=== PATIENT | male | born 1935 | race Caucasian/White ===

== ENCOUNTER → 2020-01-15 14:07 | Outpatient (BNVA) | payer MEDICARE, BC, SELFPAY | PROVIDERS: Family Provider Family Medicine; Visit Provider Podiatrist Foot & Ankle Surgery | DX: M21.41 Flat foot [pes planus] (acquired), right foot (principal) | CPT/HCPCS: 73630 ==

== ENCOUNTER 2020-02-23 13:49 | Outpatient (CLI) | payer MEDICARE, BC, SELFPAY | END 2020-02-23 13:50 | disposition home or self-care (01) | LOC: SPT 13:50 | PROVIDERS: Family Provider Family Medicine; Visit Provider Podiatrist Foot & Ankle Surgery | DX: M21.41 Flat foot [pes planus] (acquired), right foot (principal); M21.42 Flat foot [pes planus] (acquired), left foot; M21.611 Bunion of right foot; M21.612 Bunion of left foot; M20.41 Other hammer toe(s) (acquired), right foot; M20.42 Other hammer toe(s) (acquired), left foot | CPT/HCPCS: 97760; L3030 ==

== ENCOUNTER → 2021-02-07 13:08 | Outpatient (BNVA) | payer MEDICARE, BC, SELFPAY | PROVIDERS: Family Provider Family Medicine; Referring Provider Family Medicine; Visit Provider Specialist | DX: G56.00 Carpal tunnel syndrome, unspecified upper limb (principal) | CPT/HCPCS: 73110 ==

== ENCOUNTER 2021-02-10 12:36 | Outpatient (CLI) | payer MEDICARE, BC, SELFPAY ==
--- NOTE | 2021-02-10 12:46 | US_ITS ---
WS: [id number] ULTRASOUND THYROID TECHNIQUE: Ultrasound of the thyroid. CLINICAL INFORMATION: THYROID NODULE COMPARISON: None. FINDINGS: Thyroid: Right and left thyroid lobes are normal in size and echotexture. Complex cystic and solid left thyroid nodule measuring 4.2 x 3.6 cm. Recommend further evaluation wit h FNA. Small cystic right thyroid lesion measuring 5.2 x 5.8 x 7.5 mm. No other visualized nodules. Right thyroid lobe: 1.9 x 1.9 x 6.0 cm Left thyroid lobe: 7.1 cm x 3.2 cm x 3.1 cm. Isthmus: 4.6 mm. Cervical lymphadenopathy: None. US/US thyroid [id number] IMPRESSION: 1. Complex cystic and solid LEFT thyroid nodule measuring 4.2 x 3.6 cm. Recomm end further evaluation with ultrasound-guided FNA. 2. Small cystic RIGHT mid thyroid lesion measuring 5.2 x 5.8 x 7.5mm likely be nign colloid cyst
--- NOTE | 2021-02-10 12:46 | USCV_ITS ---
Ruben Huff Age: 85 Gender: M : 1935 Exam Date: 02/10/2021 13:42 Ordering Phys: Autumn Maza MD Technologist: Trupti Duenas Exam Location: [facility] Indication: DYSPNEA BP: 140 / 77 HR: 74 Rhythm: Sinus Technical Quality: Adequate MEASUREMENTS (Male / Female) Normal Values 2D ECHO LV Diastolic Diameter PLAX 4.6 cm 4.2 - 5.9 / 3.9 - 5.3 cm LV Systolic Diameter PLAX 3.9 cm IVS Diastolic Thickness 1.8 cm 0.6 - 1.0 / 0.6 - 0.9 cm IVS Systolic Thickness 2.3 cm LVPW Diastolic Thickness 1.6 cm 0.6 - 1.0 / 0.6 - 0.9 cm LVPW Systolic Thickness 2.0 cm RV Chamber Size 4.6 cm LVOT Diameter 2.0 cm LV Ejection Fraction 2D Teich 30.9 % LV Ejection Fraction MOD 2C 27.0 % LV Ejection Fraction 2C AL 28.6 % LA Diameter 4.5 cm LA Width 4.8 cm LA Height 6.3 cm RA Width 5.0 cm RA Height 6.4 cm Aorta at Sinotubular Diameter 2.9 cm M-MODE Aortic Annulus Diameter 2.9 cm LA Ao Ratio MM 1.5 MV E Point Septal Separation 1.3 cm DOPPLER AV Peak Velocity 251.0 cm/s LVOT Peak Velocity 71.0 cm/s AV Area Cont Eq vti 0.9 cm squared AV Area Cont Eq pk 0.9 cm squared MV Area PHT 5.0 cm squared Mitral E to A Ratio 3.4 MV E' Velocity 165.0 cm/s Mitral E to LV E' Septal Ratio 35.0 TR Peak Velocity 411.4 cm/s TR Peak Gradient 67.7 mmHg TR Mean Velocity 295.5 cm/s TR Mean Gradient 39.2 mmHg TR Velocity Time Integral 141.6 cm TV Peak E Velocity 104.0 cm/s Right Atrial Pressure 3.0 mmHg Pulmonary Artery Systolic Pressu 70.7 mmHg PV Peak Velocity 140.0 cm/s RV Acceleration Time 0.1 s RV Ejection Time 0.3 s RV AcT/ET 0.2 FINDINGS Left Ventricle Normal left ventricular cavity size. Increased left ventricular wall thickness. Moderate concentric left ventricular hypertrophy. Moderately decreased left ventricular systolic function. Left ventricular ejection fraction is estimated at 30- 35%. Moderate global hypokinesis. Abnormal septal motion. Right Ventricle Moderately dilated right ventricular size with at least mildly decreased right ventricle systolic function. Right ventricular systolic pressure 75 mmHg. Right Atrium Moderately increased right atrial size. Left Atrium Severely increased left atrial size. Mitral Valve Severe mitral annular calcification. Thickened mitral valve. Mild-moderate mitral valve regurgitation. Aortic Valve Thickened and calcified aortic valve. Mild aortic valve stenosis, peak velocity 2.5 m/s, mean gradient 14.1 mmHg, MODE 0.86 cm squared. No aortic valve regurgitation. Tricuspid Valve Structurally normal tricuspid valve. Fvjtuwks-zd-ezpixa tricuspid valve regurgitation. Pulmonic Valve Structurally normal pulmonic valve. Mild pulmonary valve regurgitation. Pericardium No pericardial effusion. Aorta Normal size aortic root and proximal ascending aorta. CONCLUSIONS 1. Normal left ventricular cavity size. Increased left ventricular wall thickness. Moderate concentric left ventricular hypertrophy. Moderately decreased left ventricular systolic function. Left ventricular ejection fraction is estimated at 30-35%. Moderate global hypokinesis. 2. Moderately dilated right ventricular size with at least mildly decreased right ventricle systolic function. 3. Severe pulmonary hypertension with pulmonary artery pressure estimated at 75 mmHg. 4. Thickened and calcified aortic valve. Mild aortic valve stenosis, peak velocity 2.5 m/s, mean gradient 14.1 mmHg, MODE 0.86 cm squared. 5. Lbqyskmz-yp-wrkflv tricuspid valve regurgitation. 6. Mild-moderate mitral valve regurgitation. 7. No prior similar studies to compare. Anne Marie Vaughan MD (Electronically Signed) Final Date: 17 February 2021 12:52 S
== END 2021-02-10 12:37 | disposition home or self-care (01) ==
LOC: RAD 12:38
PROVIDERS: Visit Provider Family Medicine
DX: R06.00 Dyspnea, unspecified (principal); E04.1 Nontoxic single thyroid nodule; I08.3 Combined rheumatic disorders of mitral, aortic and tricuspid valves
CPT/HCPCS: 76536; 93306

== ENCOUNTER 2021-03-09 15:30 | Outpatient (CLI) | payer MEDICARE, BC, SELFPAY | END 2021-03-09 15:31 | disposition home or self-care (01) | LOC: SPT 15:31 | PROVIDERS: PCP Family Medicine; Visit Provider Specialist | DX: Z46.89 Encounter for fitting and adjustment of other specified devices (principal); G56.03 Carpal tunnel syndrome, bilateral upper limbs | CPT/HCPCS: 97760; L3908 ==

== ENCOUNTER → 2021-03-16 08:22 | Outpatient (BNVA) | payer MEDICARE, BC, SELFPAY | PROVIDERS: PCP Family Medicine; Visit Provider Specialist | DX: G56.03 Carpal tunnel syndrome, bilateral upper limbs (principal) | CPT/HCPCS: 87635 ==

== ENCOUNTER 2021-03-18 09:56 | Day surgery (SDC) | payer MEDICARE, BC, SELFPAY ==
[2021-03-17 10:57] VITALS: BMI 25.1
[2021-03-18 10:09] VITALS: BP 161/103; PULSE 84; RESP 18; TEMP 36.2; O2SAT 96
--- NOTE | 2021-03-18 10:19 | ANES.PREANE2 ---
Pre-Anesthetic Assessment Pre-Anesthetic Assessment: Height/Weight: Height 1.8 m Weight 81.647 kg Temp Pulse Resp BP Pulse Ox 97.2 F L 84 18 161/103 96 03/18/21 10:09 03/18/21 10:09 03/18/21 10:09 03/18/21 10:09 03/18/21 10:09 Preop Diagnosis: Left carpal tunnel syndrome Proposed Procedure: Operation Date: 03/18/21 12:15 Proposed Procedures p left Carpal Tunnel Release 43196 g56.00(Left) - Rina Park MD Familial anesthetic complications: None Was Beta John taken within 24 hours: N/A Was Clonidine taken within 24 hours: N/A Last intake: > 8 hrs Social: Social History: No alcohol and No tobacco Exam: Pre-Anes Outpt Exam: alert, oriented x 3, clear to auscultation bilaterally and regular rate & rhythm Airway: MP: 3 Dentition: Full CV/HEM: CV/HEM: Afib (on warfarin), CAD (CABG), CHF, HTN (labile) and Murmur Comments: AVR and ascending aorta replaced in 2008 AAA w/ stent and endoleak (sealed) 02/14 ECho CONCLUSIONS 1. Normal left ventricular cavity size. Increased left ventricular wall thickness. Moderate concentric left ventricular hypertrophy. Moderately decreased left ventricular systolic function. Left ventricular ejection fraction is estimated at 30-35%. Moderate global hypokinesis. 2. Moderately dilated right ventricular size with at least mildly decreased right ventricle systolic function. 3. Severe pulmonary hypertension with pulmonary artery pressure estimated at 75 mmHg. 4. Thickened and calcified aortic valve. Mild aortic valve stenosis, peak velocity 2.5 m/s, mean gradient 14.1 mmHg, MODE 0.86 cm squared. 5. Rfiqwfzl-hg-dwxiag tricuspid valve regurgitation. 6. Mild-moderate mitral valve regurgitation. 7. No prior similar studies to compare. Metabolic: Metabolic: Hyperlipidemia Anesthetic Plan: ASA status: 4 Anesthesia: MAC and Regional (specify below) (carlos block) Risk of > 500 ml blood loss (7ml/kg in children): No Other Pertinent Information: Patient inquiring about local only PFSH Anesthesia PFSH: Medical History Aortic stenosis Atrial fibrillation CAD (coronary artery disease) Hypercholesterolemia Hypertension 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 Labile blood pressure Right ventricular dilation Surgical History History of knee joint replacement Hx of CABG S/P AAA (abdominal aortic aneurysm) repair S/P aortic valve replacement S/P appendectomy S/P cataract surgery S/P hip replacement S/P tonsillectomy Family History Sister Cancer Brain CA Father Heart disease Brother Heart disease Social History Household members: spouse Marital status: Current occupational status: retired Data Anesthesia CBC & Chem 7: 03/18/21 10:37 03/18/21 10:37 Cardiac Studies: No Data to Display
--- NOTE | 2021-03-18 10:22 | W.PM.OPSUD ---
Surgery/Procedure H&P Update DATE OF PROCEDURE: March 18, 2021 DATE H&P PERFORMED: 03/09/21 H&P UPDATE INFORMATION: I have reviewed H&P completed within last 30 days, I have examined patient prior to procedure, No changes to prior documentation and H&[place] is in [facility] [place] on date indicated PREOP DIAGNOSIS: Left carpal tunnel syndrome PLANNED PROCEDURE: Operation Date: 03/18/21 12:15 Proposed Procedures p left Carpal Tunnel Release 66800 g56.00(Left) - Rina Park MD Related Problem List Diagnoses (1) Carpal tunnel syndrome, left:
[2021-03-18] MEDS: CELEcoxib 200 mg Capsule 400 MG PO (10:43)
[2021-03-18] MEDS: sodium chloride 0.9% 1,000 ML 30 ML IV (10:44)
[2021-03-18] MEDS: acetaminophen 1,000 MG/100 ML PIGGYBACK 400 MG IV (10:44)
[2021-03-18 11:18] LABS: Basophils % 0.2 %; Eosinophils # 0.1 10^3/uL (0.0-0.8); Eosinophils % 1.1 %; Hematocrit 38.9 % (42.0-52.0); Hemoglobin 12.4 g/dL (11.7-16.6); Lymphocytes # 0.6 10^3/uL (0.8-4.8); Lymphocytes % 12.2 %; Mean Corpuscular HGB Conc 31.9 g/dL (30.0-36.0); Mean Corpuscular Hemoglobin 29.1 pg (28.0-34.0); Mean Corpuscular Volume 91.3 fL (80-94); Mean Platelet Volume 10.1 fL (7.4-10.4); Monocytes # 0.6 10^3/uL (0.2-0.9); Neutrophils # 3.54 10^3/uL (1.8-7.7); Neutrophils % 74.3 %; Nucleated Red Blood Cells % 0 %; Platelet Count 149 10^3/cmm (130-400); Red Blood Count 4.26 10^6/uL (4.1-5.3); Red Cell Distribution Width 20.5 % (12.1-15.1); White Blood Count 4.8 10^3/uL (4.0-10.0)
[2021-03-18 11:42] LABS: Blood Urea Nitrogen 18 mg/dL (8-23); Carbon Dioxide 25 mmol/L (22-29); Chloride 105 mmol/L (98-107); Glucose 93 mg/dL (65-115); Osmolality Calculated 294 mOsm/kg (285-295); Sodium 141 mmol/L (136-145)
[2021-03-18 12:35] VITALS: BP 135/90; PULSE 61; RESP 16; TEMP 36.6; O2SAT 94
--- NOTE | 2021-03-18 12:38 | P.PCN_ITS ---
PACU note PACU note: VSS, Good respiratory effort, report to DIRECTOR OF ESTATE Post-Anesthesia Exam: awake
--- NOTE | 2021-03-18 12:38 | PM.PACU ---
PACU note PACU note: VSS, Good respiratory effort, report to DIE TROUBLE SHOOTER Post-Anesthesia Exam: awake
[2021-03-18 12:40] VITALS: BP 133/77; PULSE 66; RESP 16; O2SAT 94
--- NOTE | 2021-03-18 12:41 | SUR.PHASEI ---
PT AWAKE ALERT ON RA GOOD RESP EFFORT, PT DENIES PAIN AND NAUSEA, VSS IV PATENT LT HAND ELEVATED DRESSING D/I DISTAL FINGERS PINK WARM. CAP REFILL LESS THAN 3 SECONDS.
[2021-03-18 12:45] VITALS: BP 124/82; PULSE 66; RESP 16; TEMP 36.6; O2SAT 94
--- NOTE | 2021-03-18 12:48 | P.OP_ITS ---
Operative Report Date of procedure: March 18, 2021 Pre-op Diagnosis: Left carpal tunnel syndrome Post-op diagnosis: same Post-op Findings: Severe compression across the left median nerve Procedure Done: Left carpal tunnel release Specimens removed/disposition: None Pathology: none sent Surgeon: Rina Park Intelligence Director: None Anesthesia: MAC (With Brendon block) Estimated blood loss (mL): 5 Tourniquet time (min): 29 Tourniquet time: At 250 mmHg IV fluids (mL): 250 Urine output (mL): 0 Urine output: No Narayan Complications: None Findings: Thickened transverse carpal ligament with severe compression across the carpal canal Condition: stable Disposition: PACU (Then to same-day surgery for discharge to home) Brief History: This 85-year-old man presented with complaints consistent with carpal tunnel syndrome. The patient was unresponsive to conservative measures. After discussion, the patient wished to proceed with carpal tunnel release. Risks and complications were discussed with him. Consents were signed preoperatively. Questions were answered. Procedure: The patient was brought to the operating theater. The patient had a [place] block with MAC. The tourniquet was elevated to 250 mmHg for a total tourniquet time of 29 minutes. The patient was also given Ancef 2 g preoperatively. The arm was then prepped and draped with DuraPrep in usual fashion with the arm draped free. A surgical pause was performed. At the time, the surgical pause, we confirmed the site and side of surgery. We also confirmed the patient's identity, appropriate and timely administration of preoperative antibiotics and preoperative surgical markings. An incision was then made along the thenar crease. The incision crossed the wrist joint in a curvilinear fashion. Dissection continued through skin and soft tissues using a scalpel. The palmaris longus was identified along with the transverse carpal ligament. Each of these was released carefully to avoid injury to the median nerve. We were able to dissect gently into the carpal canal which was noted to be quite tight with significant compression across the median nerve. The nerve was visualized and was an hourglass shape. The canal was subsequently palpated to assure there was no bony encroachment upon the canal. There was a quite thickened fibrous tissue within the canal, and this was opened longitudinally as well. The canal was then palpated distally and proximally to assure that my small finger was passed easily without impingement. Finding this to be so, attention was directed to closure. The wound was irrigated with ropivacaine plain. It was then closed with 3-0 nylon in an interrupted mattress fashion. Sterile dressing was then placed consisting of Dermabond, OpSite, fluffed fluffs, sterile soft roll, a volar splint, and an Roddy wrap. The tourniquet was released after 29 minutes. There were no complications. There were no specimens. The procedure was well tolerated. Plan is the patient will be discharged home. Associated Problem List Diagnoses (1) Carpal tunnel syndrome, left:
[2021-03-18 12:50] VITALS: BP 124/85; PULSE 65; RESP 18; O2SAT 94
[2021-03-18 13:25] VITALS: BP 116/68; PULSE 70; RESP 18; O2SAT 97
--- NOTE | 2021-03-18 14:23 | ANE.PACU2 ---
Inpatient post-anesthesia follow up: Airway intact: Yes Vital signs: Temperature 97.9 F Pulse Rate 70 Respiratory Rate 18 Blood Pressure 116/68 Pulse Oximetry 97 Oxygen Delivery Me thod Room Air Oxygen Flow Rate Fraction of Inspir ed Oxygen Hydration adequate: Yes Nausea and vomiting: No Pain level: 2 Mental status: Baseline
== END 2021-03-18 13:40 | disposition home or self-care (01) ==
PROVIDERS: Anesthesiology; PCP Family Medicine; Visit Provider Specialist
PROC: (CPT 64721; principal; 2021-03-18 12:05)
DX: G56.02 Carpal tunnel syndrome, left upper limb (principal); I48.91 Unspecified atrial fibrillation; Z79.01 Long term (current) use of anticoagulants; I25.10 Atherosclerotic heart disease of native coronary artery without angina pectoris; Z95.1 Presence of aortocoronary bypass graft; I11.0 Hypertensive heart disease with heart failure; I50.9 Heart failure, unspecified; E78.00 Pure hypercholesterolemia, unspecified
CPT/HCPCS: 64721; 80048; 85025; 96365; J0690; J2250; J3010; J3490; J7030

== ENCOUNTER → 2022-02-22 14:00 | Outpatient (BNVA) | payer MEDICARE, BC, SELFPAY | PROVIDERS: PCP Family Medicine; Visit Provider Podiatrist Foot & Ankle Surgery | DX: M21.41 Flat foot [pes planus] (acquired), right foot (principal); M21.42 Flat foot [pes planus] (acquired), left foot; L60.3 Nail dystrophy; M21.611 Bunion of right foot; M21.612 Bunion of left foot; M20.41 Other hammer toe(s) (acquired), right foot; M20.42 Other hammer toe(s) (acquired), left foot; M79.671 Pain in right foot; M79.672 Pain in left foot | CPT/HCPCS: 99213; 99214 ==

== ENCOUNTER 2022-04-25 10:43 | Outpatient (CLI) | payer MEDICARE, BC, SELFPAY | END 2022-04-25 10:44 | disposition home or self-care (01) | LOC: SPT 11:05 | PROVIDERS: PCP Family Medicine; Visit Provider Podiatrist Foot & Ankle Surgery | DX: Z46.89 Encounter for fitting and adjustment of other specified devices (principal); M21.41 Flat foot [pes planus] (acquired), right foot; M21.42 Flat foot [pes planus] (acquired), left foot | CPT/HCPCS: 97760; L3030 ==

== ENCOUNTER 2022-06-05 17:10 | Emergency (ER) | payer MEDICARE, BC, SELFPAY ==
[2022-06-05] VITALS (9 sets, daily range): BP systolic 138–160; BP diastolic 92–117; PULSE 74–92; RESP 16–18; TEMP 36.6; O2SAT 90–95; BMI 23.9
[2022-06-05 18:12] LABS: Protein Urine 3+ (Negative); Specific Gravity, Urine 1.025 (1.005-1.030); Urine Appearance Cloudy (CLEAR); Urine Color Dark Yellow (Yellow); pH Urine 5 (5-7)
[2022-06-05 18:13] LABS: Add Urine Microscopic? YES; Bilirubin Urine Neg (Negative); Blood Urine 3+ (Negative); Glucose Urine UA Norm (Normal); Ketones Urine 1+ (Negative); Leukocyte Esterase Urine 2+ (Negative); Nitrate Urine Positive (Negative); Urobilinogen Urine 1 mg/dL (Negative)
[2022-06-05 18:14] LABS: Add Urine Culture? Yes; Bacteria Urine 2+ /hpf; WBC Urine 80-100 /hpf (0-5)
[2022-06-05 18:27] LABS: Basophils % 0.1 %; Hematocrit 37.2 % (42.0-52.0); Lymphocytes # 0.3 10^3/uL (0.8-4.8); Lymphocytes % 3.5 %; Mean Corpuscular HGB Conc 32.3 g/dL (30.0-36.0); Mean Corpuscular Hemoglobin 31.1 pg (28.0-34.0); Mean Corpuscular Volume 96.4 fl (80-94); Mean Platelet Volume 9.8 fL (7.4-10.4); Monocytes # 0.6 10^3/uL (0.2-0.9); Monocytes % 6.2 %; Neutrophils # 8.05 10^3/uL (1.8-7.7); Neutrophils % 89.8 %; Nucleated Red Blood Cells % 0 %; Platelet Count 147 10^3/cmm (130-400); Red Blood Count 3.86 10^6/uL (4.1-5.3); Red Cell Distribution Width 17.2 % (12.1-15.1)
[2022-06-05 18:47] LABS: Alanine Aminotransferase 19 U/L (0-41); Albumin Level 3.7 g/dL (3.5-5.2); Alkaline Phosphatase 87 U/L (40-130); Anion Gap 14.6 (5-19); Aspartate Amino Transferase 22 U/L (0-40); Blood Urea Nitrogen 19 mg/dL (8-23); Calcium 9.7 mg/dL (8.5-10.5); Carbon Dioxide 26 mmol/L (22-29); Chloride 102 mmol/L (98-107); Glucose 147 mg/dL (65-115); Lipase 88 U/L (13-60); Osmolality Calculated 291 mOsm/kg (285-295); Potassium 4.6 mmol/L (3.5-5.1); Sodium 138 mmol/L (136-145); Total Bilirubin 1.3 mg/dL (0.15-1.2); Total Protein 7.7 g/dL (6.6-8.7)
--- NOTE | 2022-06-05 19:36 | CTR_ITS ---
PROCEDURE INFORMATION: Exam: CT Abdomen And Pelvis Without Contrast Exam date and time: 06/05/2022 7:50 PM Age: 87 years old Clinical indication: Abdominal pain; Generalized; Prior surgery; Surgery type: Aaa repair. Aortic valve. Cabg. Appy. Hip replacement. Patient HX: C/O abd pain with micro hematuria. ; Additional info: Abd pain, ro/o kidney stone, pylo TECHNIQUE: Imaging protocol: Computed tomography of the abdomen and pelvis without contrast. Radiation optimization: All CT scans at this facility use at least one of these dose optimization techniques: automated exposure control; mA and/or kV adjustment per patient size (includes targeted exams where dose is matched to clinical indication); or iterative reconstruction. COMPARISON: CT angio abdomen [id number] 03/15/2018 9:16 AM RADIATION DOSE METRICS: Total DLP (mGy-cm): 610.63 FINDINGS: Lungs: Bibasilar atelectasis versus infiltrate. Pleural spaces: Moderate right small to moderate left pleural effusions. Heart: Cardiomegaly. Coronary artery atherosclerotic calcifications. Liver: Normal. No mass. Gallbladder and bile ducts: Cholelithiasis. Pancreas: Normal. No ductal dilation. Spleen: Normal. No splenomegaly. Adrenal glands: Normal. No mass. Kidneys and ureters: Left kidney cyst, negative for follow-up advised. Stomach and bowel: Diverticulosis without diverticulitis. Appendix: No evidence of appendicitis. Intraperitoneal space: Small amount of ascites in the abdomen. Vasculature: Aorta bi-iliac graft seen with an excluded aneurysm sac measuring up to 8.6 cm in size, increased compared to prior exam when it measured up to 5.8 cm in size with some hyperdense material in the excluded sac, concerning for leakage outside of the graft into the excluded andreaf[place] aneurysm sac, negative for fluid or inflammatory changes seen outside of the excluded aneurysm sac. Given the hyperdensity of the material, findings may reflect active leakage into the excluded aneurysm sac, a CT with contrast could further evaluate this. Lymph nodes: Unremarkable. No enlarged lymph nodes. Urinary bladder: Unremarkable as visualized. Reproductive: Unremarkable as visualized. Bones/joints: Sternotomy wires. Left hip arthroplasty changes. Soft tissues: Anasarca suspected. CT/CT abdomen pelvis wo con [id number] IMPRESSION: 1. Aorta bi-iliac graft seen with an excluded aneurysm sac measuring up to 8.6 cm in size, increased compared to prior exam when it measured up to 5.8 cm in size with some hyperdense material in the excluded sac, concerning for leakage outside of the graft into the excluded andreafski aneurysm sac, negative for fluid or inflammatory changes seen outside of the excluded aneurysm sac. Given the hyperdensity of the material, findings may reflect active leakage into the excluded aneurysm sac, a CT with contrast could further evaluate this. 2. Small amount of ascites in the abdomen. 3. Anasarca suspected. 4. Moderate right small to moderate left pleural effusions. 5. Cardiomegaly. 6. Coronary artery atherosclerotic calcifications. 7. Bibasilar atelectasis versus infiltrate. 8. Sternotomy wires. 9. Cholelithiasis. 10. Diverticulosis without diverticulitis. 11. Left hip arthroplasty changes. 12. Left kidney cyst, negative for follow-up advised.
[2022-06-05] MEDS: phenazopyridine 100 mg Tablet 200 MG PO (19:43)
[2022-06-05] MEDS: ketorolac 30 mg/mL INJ 15 MG IM (19:44)
--- NOTE | 2022-06-05 20:15 | ED_ITS ---
HPI - Abdominal Pain General: Chief Complaint: Abdominal Pain Stated Complaint: Stomach pain, ask to come in by Time Seen by Provider: 06/05/22 19:24 History of Present Illness: 87-year-old male who complains of lower abdominal pain. Patient reports been going on for couple days. He was seen at his primary care provider's office today diagnosed with a urinary tract infection a nd started on amoxicillin. Patient reports that the pain has gotten worse throughout the day is in the lower abdomen bilateral and suprapubic. He denies any nausea, vomiting, fever, chills. Patient reports he has not training for the pain and that Tylenol does not work for him. Patient denies any cough, chest pain Associated Symptoms: Denies chills, constipation, diarrhea, dysuria, fever(s), nausea and vomiting Review of Systems Const: Denies: fever(s) or chills Card: Denies: chest pain, palpitations or irregular heart rhythm Resp: Denies: dyspnea, productive cough or wheezing GI: Reports: abdominal pain; Denies: nausea, vomiting, diarrhea or constipation : Reports: flank pain; Denies: dysuria Musc: Denies: neck pain or extremity pain Skin/Breast: Denies: rash Neuro: Denies: headache(s) or dizziness Psych: Denies: anxiety or depression PFSH ED PFSH: Medical History Aortic stenosis Atrial fibrillation CAD (coronary artery disease) Hypercholesterolemia Hypertension 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 Labile blood pressure Right ventricular dilation Surgical History History of knee joint replacement Hx of CABG S/P AAA (abdominal aortic aneurysm) repair S/P aortic valve replacement S/P appendectomy S/P cataract surgery S/P hip replacement S/P tonsillectomy Family History Sister Cancer Brain CA Father Heart disease Brother Heart disease Social History Household members: spouse Marital status: Current occupational status: retired Physical Exam Const: COMMON NORMALS: no acute distress, patient oriented x3 and alert Eye: COMMON NORMALS: EOMs intact bilaterally GENERAL EYE: appearance normal, both eyes and all related structures Resp: COMMON NORMALS: normal respiratory effort, No use of accessory muscles and clear to auscultation bilaterally AUSCULTATION: clear to auscultation bilaterally Cardio: COMMON NORMALS: regular rate and regular rhythm RATE: regular rate RHYTHM: regular rhythm GI: COMMON NORMALS: Soft to palpation INSPECTION: No abdominal distension PALPATION: Yes Soft to palpation and Yes Tenderness to palpation present (GI) Details: LLQ and RLQ Extremity: COMMON NORMALS: normal to inspection, full ROM and capillary refill normal Neuro: COMMON NORMALS: patient oriented x3, moves all extremities and no focal motor deficits SENSORIUM/ORIENTATION: Yes alert Psych: COMMON NORMALS: mental status grossly normal, cooperative and normal affect Course Vital Signs: Vital signs: Vital Signs Temperature 97.8 F 06/05/22 17:15 Pulse Rate 88 06/05/22 22:28 Respiratory Rate 18 06/05/22 22:28 Blood Pressure 139/101 06/05/22 22:28 Pulse Oximetry 92 06/05/22 22:28 Oxygen Delivery Me thod 06/05/22 19:11 MDM - Abdominal Pain Medical Decision Making Patient with leaking aortic aneurysm. Patient is having active expansion. Discussed with Dr. Castro vascular surgeon and Dr. Tucker ER physician who accepted patient for transfer ER to ER to [facility] in [facility]. Patient was stable upon transfer. Lab Data : 06/05/22 18:16 06/05/22 18:16 Labs/Radiology: Radiology Impressions Abdomen/Pelvis CT 06/05/22 19:36 IMPRESSION: 1. Aorta bi-iliac graft seen with an excluded aneurysm sac measuring up to 8.6 cm in size, increased compared to prior exam when it measured up to 5.8 cm in size with some hyperdense material in the excluded sac, concerning for leakage outside of the graft into the excluded [place] aneurysm sac, negative for fluid or inflammatory changes seen outside of the excluded aneurysm sac. Given the hyperdensity of the material, findings may reflect active leakage into the excluded aneurysm sac, a CT with contrast could further evaluate this. 2. Small amount of ascites in the abdomen. 3. Anasarca suspected. 4. Moderate right small to moderate left pleural effusions. 5. Cardiomegaly. 6. Coronary artery atherosclerotic calcifications. 7. Bibasilar atelectasis versus infiltrate. 8. Sternotomy wires. 9. Cholelithiasis. 10. Diverticulosis without diverticulitis. 11. Left hip arthroplasty changes. 12. Left kidney cyst, negative for follow-up advised. Abdomen/Pelvis CTA 06/05/22 21:00 IMPRESSION: 1. Aorta bi-iliac graft seen with an excluded aneurysm sac measuring up to 9.5 cm with apparent excreted contrast into the excluded aneurysm sac suggestive of active leakage from the graft into the sac. No contrast is seen outside of the [place] aneurysm sac is seen. 2. Left kidney cyst, negative for follow-up advised. 3. Small amount of ascites in the abdomen. 4. Diverticulosis without diverticulitis. 5. Anasarca. 6. Large bilateral pleural effusions partially seen. 7. Cardiomegaly. 8. Cholelithiasis. COMMENTS: Consistent with the [employer] [place] [employer]'s Incidental Findings Committee white paper (J Am Kevin Radiol 2018): Any incidental renal lesion less than 1 cm or classified as too small to characterize, or any incidental cystic renal lesion characterized as simple-appearing, is likely benign. No follow-up imaging is recommended for these lesions per consensus recommendations based on imaging criteria. Laboratory Results WBC 9.0 10^3/uL (4.0-10.0) 06/05/22 18:16 RBC 3.86 10^6/uL (4.1-5.3) L 06/05/22 18:16 Hgb 12.0 g/dL (11.7-16.6) 06/05/22 18:16 Hct 37.2 % (42.0-52.0) L 06/05/22 18:16 MCV 96.4 fl (80-94) H 06/05/22 18:16 MCH 31.1 pg (28.0-34.0) 06/05/22 18:16 MCHC 32.3 g/dL (30.0-36.0) 06/05/22 18:16 RDW 17.2 % (12.1-15.1) H 06/05/22 18:16 Plt Count 147 10^3/cmm (130-400) 06/05/22 18:16 MPV 9.8 fL (7.4-10.4) 06/05/22 18:16 Neut % (Auto) 89.8 % 06/05/22 18:16 Lymph % (Auto) 3.5 % 06/05/22 18:16 [place] % (Auto) 6.2 % 06/05/22 18:16 Eos % (Auto) 0.0 % 06/05/22 18:16 Baso % (Auto) 0.1 % 06/05/22 18:16 Neut # (Auto) 8.05 10^3/uL (1.8-7.7) H 06/05/22 18:16 Lymph # (Auto) 0.3 10^3/uL (0.8-4.8) L 06/05/22 18:16 [place] # (Auto) 0.6 10^3/uL (0.2-0.9) 06/05/22 18:16 Eos # (Auto) 0.0 10^3/uL (0.0-0.8) 06/05/22 18:16 Baso # (Auto) 0.0 10^3/uL (0.0-0.1) 06/05/22 18:16 Nucleated RBC % (auto) 0 % 06/05/22 18:16 Nucleated RBCs # 0.0 /100WBC 06/05/22 18:16 Sodium 138 mmol/L (136-145) 06/05/22 18:16 Potassium 4.6 mmol/L (3.5-5.1) 06/05/22 18:16 Chloride 102 mmol/L (98-107) 06/05/22 18:16 Carbon Dioxide 26 mmol/L (22-29) 06/05/22 18:16 Anion Gap 14.6 (5-19) 06/05/22 18:16 BUN 19 mg/dL (8-23) 06/05/22 18:16 Creatinine 1.0 mg/dL (0.7-1.2) 06/05/22 18:16 GFR Calculation Not Reportable 06/05/22 18:16 Glucose 147 mg/dL (65-115) H 06/05/22 18:16 Calculated Osmolality 291 mOsm/kg (285-295) 06/05/22 18:16 Calcium 9.7 mg/dL (8.5-10.5) 06/05/22 18:16 Total Bilirubin 1.3 mg/dL (0.15-1.2) H 06/05/22 18:16 AST 22 U/L (0-40) 06/05/22 18:16 ALT 19 U/L (0-41) 06/05/22 18:16 Alkaline Phosphatase 87 U/L (40-130) 06/05/22 18:16 Total Protein 7.7 g/dL (6.6-8.7) 06/05/22 18:16 Albumin 3.7 g/dL (3.5-5.2) 06/05/22 18:16 Globulin 4.0 g/dL (1.3-4.6) 06/05/22 18:16 Lipase 88 U/L (13-60) H 06/05/22 18:16 Urine Color Dark yellow (Yellow) 06/05/22 17:53 Urine Appearance Cloudy (CLEAR) A 06/05/22 17:53 Urine pH 5 (5-7) 06/05/22 17:53 Ur Specific [place] 1.025 (1.005-1.030) 06/05/22 17:53 Urine Protein 3+ (Negative) H 06/05/22 17:53 Urine Glucose (UA) Norm (Normal) 06/05/22 17:53 Urine Ketones 1+ (Negative) H 06/05/22 17:53 Urine Blood 3+ (Negative) H 06/05/22 17:53 Urine Nitrate Positive (Negative) H 06/05/22 17:53 Urine Bilirubin Neg (Negative) 06/05/22 17:53 Urine Urobilinogen 1 mg/dL (Negative) H 06/05/22 17:53 Ur Leukocyte Esterase 2+ (Negative) H 06/05/22 17:53 Urine RBC 5-10 /hpf (0-2) H 06/05/22 17:53 Urine WBC 80-100 /hpf (0-5) H 06/05/22 17:53 Ur Squamous Epith Cells None /hpf (0-5) 06/05/22 17:53 Amorphous Sediment Not Reportable 06/05/22 17:53 Urine Bacteria 2+ /hpf (NONE) H 06/05/22 17:53 Discharge Plan Discharge Patient Disposition: Xfer Short-Term Hosp Clinical Impression: History of dissecting abdominal aortic aneurysm (AAA) repair, Dissecting abdominal aortic aneurysm Condition: Stable Referrals: Autumn Maza MD [Primary Care Provider] - Patient Instructions: Opioid Safety, Pain Management Coding Level of Care Code ED Truss Puller Helper for Chg Fwd Exam Comprehensive
--- NOTE | 2022-06-05 21:00 | CTR_ITS ---
PROCEDURE INFORMATION: Exam: CTA Chest With Contrast CTA Abdomen and Pelvis With Contrast Exam date and time: 06/05/2022 9:23 PM Age: 87 years old Clinical indication: Other: Abnormal aaa; Prior surgery; Surgery type: Cabg. Aortic valve. Aaa repair. Appy. Hip replacement. Patient HX: Abnormal appearance of aaa noted on non contrast abd CT. ; Additional info: Evaluate aneurysm TECHNIQUE: Imaging protocol: Computed tomographic angiography of the chest with contrast. Computed tomographic angiography of the abdomen and pelvis with contrast. 3D rendering (Not supervised by radiologist): MIP and/or 3D reconstructed images were created by the technologist. Radiation optimization: All CT scans at this facility use at least one of these dose optimization techniques: automated exposure control; mA and/or kV adjustment per patient size (includes targeted exams where dose is matched to clinical indication); or iterative reconstruction. Contrast material: OMNI 350; Contrast volume: 200 ml; Contrast route: INTRAVENOUS (IV); COMPARISON: CT abdomen pelvis wo con [id number] 06/05/2022 7:50 PM RADIATION DOSE METRICS: Total DLP (mGy-cm): 1056.15 FINDINGS: VASCULATURE: Pulmonary arteries: Normal. No pulmonary emboli. Aorta: Aorta bi-iliac graft seen with an excluded aneurysm sac measuring up to 9.5 cm with apparent excreted contrast into the excluded aneurysm sac suggestive of active leakage from the graft into the sac. No contrast is seen outside of the iliamna aneurysm sac is seen. Celiac trunk and mesenteric arteries: No occlusion or significant stenosis. Renal arteries: No occlusion or significant stenosis. Right iliac arteries: No occlusion or significant stenosis. Left iliac arteries: No occlusion or significant stenosis. CHEST: Lungs: Unremarkable. No consolidation. No masses. Pleural spaces: Large bilateral pleural effusions partially seen. Heart: Cardiomegaly. ABDOMEN AND PELVIS: Liver: No mass. Gallbladder and bile ducts: Cholelithiasis. Pancreas: Unremarkable. No mass. No ductal dilation. Spleen: Unremarkable. No splenomegaly. Adrenal glands: Unremarkable. No mass. Kidneys and ureters: Left kidney cyst, negative for follow-up advised. Stomach and bowel: Diverticulosis without diverticulitis. Appendix: No evidence of appendicitis. Intraperitoneal space: Small amount of ascites in the abdomen. Urinary bladder: Unremarkable. No mass. Reproductive: Unremarkable as visualized. Lymph nodes: Unremarkable. No enlarged lymph nodes. Bones/joints: Unremarkable. No acute fracture. Soft tissues: Anasarca. CT/CT angio abdomen pelvis [id number] IMPRESSION: 1. Aorta bi-iliac graft seen with an excluded aneurysm sac measuring up to 9.5 cm with apparent excreted contrast into the excluded aneurysm sac suggestive of active leakage from the graft into the sac. No contrast is seen outside of the iliamna aneurysm sac is seen. 2. Left kidney cyst, negative for follow-up advised. 3. Small amount of ascites in the abdomen. 4. Diverticulosis without diverticulitis. 5. Anasarca. 6. Large bilateral pleural effusions partially seen. 7. Cardiomegaly. 8. Cholelithiasis. COMMENTS: Consistent with the [place] [employer]'s Incidental Findings Committee white paper (J Am Kevin Radiol 2018): Any incidental renal lesion less than 1 cm or classified as too small to characterize, or any incidental cystic renal lesion characterized as simple-appearing, is likely benign. No follow-up imaging is recommended for these lesions per consensus recommendations based on imaging criteria.
[2022-06-05] MEDS: iohexol 350 mg/mL 100 mL Btl IV (21:36)
--- NOTE | 2022-06-05 23:06 | PC.NURSE ---
called report to tim alvarez
[2022-06-05 23:15] LABS: INR 3.13 (0.8-1.2)
[2022-06-05 23:16] LABS: Partial Thromboplastin Time 45.9 SECONDS (23.9-36.7)
== END 2022-06-05 23:37 | disposition short-term general hospital (02) ==
PROVIDERS: Family Medicine; Emergency Provider Student in an Organized Health Care Education/Training Program; PCP Family Medicine
DX: I71.02 Dissection of abdominal aorta (principal); I25.10 Atherosclerotic heart disease of native coronary artery without angina pectoris; Z95.1 Presence of aortocoronary bypass graft
CPT/HCPCS: 36415; 74174; 74176; 80053; 81001; 83690; 85025; 85610; 85730; 87077; 87086; 87186; 96372; 99285; J1885; Q9967

== ENCOUNTER 2022-06-17 11:16 | Emergency (ER) | payer MEDICARE, BC, SELFPAY ==
[2022-06-17 11:25] VITALS: BP 155/48; PULSE 76; RESP 15; O2SAT 93; BMI 24.0
--- NOTE | 2022-06-17 11:32 | W.ED.BACK ---
HPI - Back Pain/Injury General: Chief Complaint: Back Pain/Injury Stated Complaint: Lower back pain Time Seen by Provider: 06/17/22 11:31 History of Present Illness: Mr. 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 He reports being improved upon discharge and had pain that woke him up from sleep at about 2:30 AM without known specific provoking factor. Intensity symptoms and onset has been moderate. Described as a deep aching throbbing pain. Similar to the pain that he had prior to his previous presentation. Overall course has persisted. Denies any other associated symptoms. No other specific changes in health, exacerbating, or alleviating factors identified. 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 Labile blood pressure Right ventricular dilation Surgical History History of knee joint replacement Hx of CABG S/P AAA (abdominal aortic aneurysm) repair S/P aortic valve replacement S/P appendectomy S/P cataract surgery S/P hip replacement S/P tonsillectomy Family History Sister Cancer Brain CA Father Heart disease Brother Heart disease Social History Household members: spouse Marital status: Current occupational status: retired Physical Exam Const: COMMON NORMALS: alert GENERAL APPEARANCE: cooperative and well developed HENMT: COMMON NORMALS: normocephalic and atraumatic HEAD & SCALP: normocephalic and atraumatic Eye: COMMON NORMALS: conjunctivae normal CONJUNCTIVA: Yes conjunctivae normal SCLERA: sclerae normal Neck/C-Spine: COMMON NORMALS: supple GENERAL: Yes trachea midline Resp: COMMON NORMALS: clear to auscultation bilaterally EFFORT & INSPECTION: Yes able to speak in complete sentences AUSCULTATION: clear to auscultation bilaterally Cardio: COMMON NORMALS: regular rate and regular rhythm RATE: regular rate RHYTHM: regular rhythm GI: COMMON NORMALS: Soft to palpation PALPATION: Yes Soft to palpation and No Tenderness to palpation present (GI) Back/Pelvis: COMMON NORMALS: no thoracic nor lumbar tenderness Extremity: GENERAL: Yes normal exam except as noted and Yes edema (1+ symmetric) Neuro: COMMON NORMALS: moves all extremities SENSORIUM/ORIENTATION: Yes alert and No Orientation impaired Psych: COMMON NORMALS: mental status grossly normal and Normal thought process present THOUGHT PROCESS: Normal thought process present Course Vital Signs: Vital signs: Vital Signs Pulse Rate 72 06/17/22 15:07 Respiratory Rate 19 H 06/17/22 13:32 Blood Pressure 170/90 06/17/22 15:07 Pulse Oximetry 96 06/17/22 15:07 Oxygen Delivery Me thod 06/17/22 12:08 MDM - Back Pain/Injury Medical Decision Making 87-year-old gentleman with complex recent history presenting with back pain similar to prior endoleak. Patient did undergo operative intervention though exact procedure somewhat unclear initially. Laboratory studies with minimal leukocytosis, macrocytic anemia is similar to prior. No acute metabolic derangements requiring intervention. No evidence of UTI. Supratherapeutic INR discussed with patient. Repeat CTA consistent with continued endoleak though the abdominal aortic aneurysm sac appears similar in size. I discussed the case with Dr. Akers and transmitted images for review. He recommended outpatient follow-up with operating vascular surgeon. Challenging situation however this is probably reasonable given the overall aneurysm size is unchanged and it appears that prior intervention was not particularly helpful. Patient is high risk however in discussion with vascular surgery likely not as a candidate for additional emergent intervention. Upon reassessment patient improved. The results of ED evaluation were discussed with the patient including prescriptions and/or symptomatic cares (if applicable) including appropriate and responsible use, followup plan, and return precautions. The patient verbalized understanding and felt safe for discharge. Medical Records I reviewed the patient's medical records. Labs I reviewed the patient's lab results. : 06/17/22 11:48 06/17/22 11:48 Radiology Impressions Abdomen/Pelvis CTA 06/17/22 11:40 IMPRESSION: 1. Stable 10.1 cm abdominal aortic aneurysm without rupture. 2. Stable patent aortic bilateral common iliac artery endovascular stent. 3. Increased aortic bilateral iliac artery endovascular stent leak with increased opacified contrast outside the stent but within the lumen of the 10.1 cm [place] abdominal aortic aneurysm. 4. The patient is at risk for aneurysm expansion and rupture because of the endovascular leak and size of the aneurysm. 5. Stable stable moderate to large loculated right pleural fluid collection with stable moderate left pleural fluid collection. Laboratory Results WBC 10.2 10^3/uL (4.0-10.0) H 06/17/22 11:48 RBC 3.87 10^6/uL (4.1-5.3) L 06/17/22 11:48 Hgb 11.7 g/dL (11.7-16.6) 06/17/22 11:48 Hct 37.2 % (42.0-52.0) L 06/17/22 11:48 MCV 96.1 fl (80-94) H 06/17/22 11:48 MCH 30.2 pg (28.0-34.0) 06/17/22 11:48 MCHC 31.5 g/dL (30.0-36.0) 06/17/22 11:48 RDW 17.6 % (12.1-15.1) H 06/17/22 11:48 Plt Count 196 10^3/cmm (130-400) 06/17/22 11:48 MPV 9.7 fL (7.4-10.4) 06/17/22 11:48 Neut % (Auto) 89.5 % 06/17/22 11:48 Lymph % (Auto) 2.7 % 06/17/22 11:48 [place] % (Auto) 7.0 % 06/17/22 11:48 Eos % (Auto) 0.0 % 06/17/22 11:48 Baso % (Auto) 0.1 % 06/17/22 11:48 Neut # (Auto) 9.15 10^3/uL (1.8-7.7) H 06/17/22 11:48 Lymph # (Auto) 0.3 10^3/uL (0.8-4.8) L 06/17/22 11:48 [place] # (Auto) 0.7 10^3/uL (0.2-0.9) 06/17/22 11:48 Eos # (Auto) 0.0 10^3/uL (0.0-0.8) 06/17/22 11:48 Baso # (Auto) 0.0 10^3/uL (0.0-0.1) 06/17/22 11:48 Nucleated RBC % (auto) 0 % 06/17/22 11:48 Nucleated RBCs # 0.0 /100WBC 06/17/22 11:48 PT 35.90 SECONDS (12.1-14.9) H 06/17/22 11:48 INR 3.57 (0.8-1.2) H 06/17/22 11:48 APTT 46.5 SECONDS (23.9-36.7) H 06/17/22 11:48 Sodium 132 mmol/L (136-145) L 06/17/22 11:48 Potassium 4.5 mmol/L (3.5-5.1) 06/17/22 11:48 Chloride 98 mmol/L (98-107) 06/17/22 11:48 Carbon Dioxide 28 mmol/L (22-29) 06/17/22 11:48 Anion Gap 10.5 (5-19) 06/17/22 11:48 BUN 23 mg/dL (8-23) 06/17/22 11:48 Creatinine 1.0 mg/dL (0.7-1.2) 06/17/22 11:48 GFR Calculation Not Reportable 06/17/22 11:48 Glucose 126 mg/dL (65-115) H 06/17/22 11:48 Calculated Osmolality 279 mOsm/kg (285-295) L 06/17/22 11:48 Calcium 9.2 mg/dL (8.5-10.5) 06/17/22 11:48 Total Bilirubin 1.0 mg/dL (0.15-1.2) 06/17/22 11:48 AST 24 U/L (0-40) 06/17/22 11:48 ALT 20 U/L (0-41) 06/17/22 11:48 Alkaline Phosphatase 94 U/L (40-130) 06/17/22 11:48 Total Protein 7.4 g/dL (6.6-8.7) 06/17/22 11:48 Albumin 3.2 g/dL (3.5-5.2) L 06/17/22 11:48 Globulin 4.2 g/dL (1.3-4.6) 06/17/22 11:48 Urine Color Straw (Yellow) 06/17/22 14:11 Urine Appearance Clear (CLEAR) 06/17/22 14:11 Urine pH 6 (5-7) 06/17/22 14:11 Ur Specific [place] 1.015 (1.005-1.030) 06/17/22 14:11 Urine Protein 1+ (Negative) H 06/17/22 14:11 Urine Glucose (UA) Norm (Normal) 06/17/22 14:11 Urine Ketones Negative (Negative) 06/17/22 14:11 Urine Blood 2+ (Negative) H 06/17/22 14:11 Urine Nitrate Negative (Negative) 06/17/22 14:11 Urine Bilirubin Neg (Negative) 06/17/22 14:11 Urine Urobilinogen Norm mg/dL (Negative) 06/17/22 14:11 Ur Leukocyte Esterase Negative (Negative) 06/17/22 14:11 Urine RBC 0-4 /hpf (0-2) H 06/17/22 14:11 Urine WBC 0-4 /hpf (0-5) H 06/17/22 14:11 Ur Squamous Epith Cells 5-10 /hpf (0-5) H 06/17/22 14:11 Amorphous Sediment Not Reportable 06/17/22 14:11 Urine Bacteria Trace /hpf (NONE) 06/17/22 14:11 Discharge Plan Discharge Patient Disposition: Home Clinical Impression: Back pain, Endoleak of aortic graft, Hematuria, Supratherapeutic INR Condition: Stable Prescriptions: New oxycodone 5 mg tablet 5 mg PO Q4H PRN (Reason: pain) Qty: 10 0RF Miralax 17 gram powder in packet 17 g PO BID Qty: 30 0RF Rx Instructions: while taking opioids No Action (DME) Sole Supports See Rx Instructions .ROUTE .MEDSUPPLY Qty: 1 0RF Rx Instructions: As directed atorvastatin 80 mg tablet 80 mg PO DAILY celecoxib 200 mg capsule 200 mg PO DAILY finasteride 5 mg tablet 5 mg PO DAILY olmesartan 20 mg tablet 20 mg PO DAILY acetaminophen [Tylenol Extra Strength] 500 mg tablet 500 mg PO DAILY PRN (Reason: Pain) warfarin 5 mg tablet 5 mg PO DIRECTED Rx Instructions: Sunday cholecalciferol (vitamin D3) 125 mcg (5,000 unit) capsule 125 mcg PO DAILY warfarin 2.5 mg tablet 2.5 mg PO DIRECTED Rx Instructions: Mon-Sat (DME) COCK UP SPLINT See Rx Instructions .Route .MEDSUPPLY Qty: 2 0RF Rx Instructions: As directed vitamin B complex [B Complex-Vitamin B12] Tablet 1 tab PO DAILY (DME) Sole Supports See Rx Instructions .Route .MEDSUPPLY Qty: 1 0RF Rx Instructions: As directed amoxicillin 500 mg Capsule 500 mg PO TID PreserVision AREDS-2 250-90-40-1 mg Capsule 1 tab PO BID furosemide 40 mg tablet 40 mg PO DAILY PRN (Reason: Edema) Discharge Orders: Discharge ED (Routine); Ordered 06/17/22 Ordered By: Maurizio Romeo Referrals: Autumn Maza MD [Primary Care Provider] - Discharge Diet: Usual diet Discharge Activity: Limit activity as instructed Patient Instructions: Back Pain (ED), Endovascular Aneurysm Repair of Abdominal Aorta (DC), Opioid Safety, Pain Management Activity Restrictions/Additional Instructions: Thank you for visiting the emergency department. You were seen evaluated for back pain. The exact cause of your symptoms is unclear though as discussed you do still have leaking from your previously repaired endograft. This is contained within the excluded aneurysm sac. Given the size of the sac you are still at risk for rupture however after discussion with vascular surgery at [facility] you do not require transfer at this time. Please call Sunday and have follow-up with your vascular surgeon. Your INR was mildly elevated, please contact your monitoring/prescribing service on Sunday for further instructions. Watch for signs of bleeding. Return to the emergency department for worsening symptoms or anything else that you are concerned about a feel needs emergency department evaluation. 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
--- NOTE | 2022-06-17 11:40 | CTR_ITS ---
PROCEDURE INFORMATION: Exam: CTA Chest With Contrast CTA Abdomen and Pelvis With Contrast Exam date and time: 06/17/2022 12:06 PM Age: 87 years old Clinical indication: Pain; Other: Back; Prior surgery; Patient HX: Aaa graft 6 years ago, repair on 06/05/22; Additional info: Low back pain, HX leaking aaa graft repair TECHNIQUE: Imaging protocol: Computed tomographic angiography of the chest with contrast. Computed tomographic angiography of the abdomen and pelvis with contrast. 3D rendering (Not supervised by radiologist): MIP and/or 3D reconstructed images were created by the technologist. Radiation optimization: All CT scans at this facility use at least one of these dose optimization techniques: automated exposure control; mA and/or kV adjustment per patient size (includes targeted exams where dose is matched to clinical indication); or iterative reconstruction. Contrast material: OMNI 350; Contrast volume: 100 ml; Contrast route: INTRAVENOUS (IV); COMPARISON: CT angio abdomen pelvis [id number] 06/05/2022 9:23 PM RADIATION DOSE METRICS: Total DLP (mGy-cm): 1884.37 FINDINGS: VASCULATURE: Pulmonary arteries: Normal. No pulmonary emboli. Aorta: Stable 10.1 cm abdominal aortic aneurysm without rupture. Stable patent aortic bilateral common iliac artery endovascular stent. Increased aortic bilateral iliac artery endovascular stent leak with increased opacified contrast outside the stent but within the lumen of the 10.1 cm [place] abdominal aortic aneurysm. Calcification of the abdominal aorta and/or iliac arteries consistent with atherosclerotic vessel disease. Celiac trunk and mesenteric arteries: No occlusion or significant stenosis. Renal arteries: No occlusion or significant stenosis. Right iliac arteries: No occlusion or significant stenosis. Left iliac arteries: No occlusion or significant stenosis. CHEST: Lungs: Compressive atelectasis in portions of the right middle lobe and right lower lobe. Pleural spaces: Stable stable moderate to large loculated right pleural fluid collection with stable moderate left pleural fluid collection. Heart: Stable severe calcified coronary artery disease. Severe calcification in the mitral valve and/or mitral valve annulus. ABDOMEN AND PELVIS: Liver: No mass. Gallbladder and bile ducts: Continued multiple gallstones within the gallbladder. Pancreas: Unremarkable. No mass. No ductal dilation. Spleen: Unremarkable. No splenomegaly. Adrenal glands: Unremarkable. No mass. Kidneys and ureters: Stable simple left renal cyst measuring > 1.0 cm. Stomach and bowel: Moderate diverticulosis. Increased moderate retained feces in the region of the cecum with continued extensive surgical clips posterior to the cecum. Appendix: No evidence of appendicitis. Intraperitoneal space: Stable pelvic fluid which is abnormal for a male. Urinary bladder: Unremarkable. No mass. Reproductive: Unremarkable as visualized. Lymph nodes: Unremarkable. No enlarged lymph nodes. Bones/joints: Severe multilevel spine degenerative changes including degenerative disc disease, spondylosis and facet degenerative changes. Stable left total hip replacement. Soft tissues: Unremarkable. Other findings: The patient is at risk for aneurysm expansion and rupture because of the endovascular leak and size of the aneurysm. CT/CT angio abdomen pelvis [id number] IMPRESSION: 1. Stable 10.1 cm abdominal aortic aneurysm without rupture. 2. Stable patent aortic bilateral common iliac artery endovascular stent. 3. Increased aortic bilateral iliac artery endovascular stent leak with increased opacified contrast outside the stent but within the lumen of the 10.1 cm [place] abdominal aortic aneurysm. 4. The patient is at risk for aneurysm expansion and rupture because of the endovascular leak and size of the aneurysm. 5. Stable stable moderate to large loculated right pleural fluid collection with stable moderate left pleural fluid collection.
--- NOTE | 2022-06-17 11:42 | ECG_ITS ---
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 Measurements Intervals [place] Rate: 74 P: 253 TN: 240 QRS: 101 QRSD: 170 T: 269 QT: 462 QTc: 515 Interpretive Statements SINUS RHYTHM WITH FIRST DEGREE AV BLOCK RIGHT AXIS DEVIATION [QRS AXIS > 100] INTRAVENTRICULAR CONDUCTION DELAY [130+ ms QRS DURATION] No previous ECG available for comparison Electronically Signed On 06-19-2022 23:16:20 CDT by Anne Marie Vaughan M.D. [id number]
[2022-06-17 11:57] LABS: Basophils % 0.1 %; Hematocrit 37.2 % (42.0-52.0); Hemoglobin 11.7 g/dL (11.7-16.6); Lymphocytes # 0.3 10^3/uL (0.8-4.8); Lymphocytes % 2.7 %; Mean Corpuscular HGB Conc 31.5 g/dL (30.0-36.0); Mean Corpuscular Hemoglobin 30.2 pg (28.0-34.0); Mean Corpuscular Volume 96.1 fl (80-94); Mean Platelet Volume 9.7 fL (7.4-10.4); Monocytes # 0.7 10^3/uL (0.2-0.9); Neutrophils # 9.15 10^3/uL (1.8-7.7); Neutrophils % 89.5 %; Nucleated Red Blood Cells % 0 %; Platelet Count 196 10^3/cmm (130-400); Red Blood Count 3.87 10^6/uL (4.1-5.3); Red Cell Distribution Width 17.6 % (12.1-15.1); White Blood Count 10.2 10^3/uL (4.0-10.0)
[2022-06-17 11:58] VITALS: RESP 21
[2022-06-17] MEDS: morphine 4 mg/mL SDV 1 mL IVP ×2 (11:58→13:32)
[2022-06-17 12:08] VITALS: BP 152/96; PULSE 76; RESP 21; O2SAT 93
[2022-06-17 12:10] LABS: INR 3.57 (0.8-1.2); Partial Thromboplastin Time 46.5 SECONDS (23.9-36.7)
[2022-06-17] MEDS: iohexol 350 mg/mL 100 mL Btl IV (12:13)
[2022-06-17 12:18] LABS: Alanine Aminotransferase 20 U/L (0-41); Albumin Level 3.2 g/dL (3.5-5.2); Alkaline Phosphatase 94 U/L (40-130); Anion Gap 10.5 (5-19); Aspartate Amino Transferase 24 U/L (0-40); Blood Urea Nitrogen 23 mg/dL (8-23); Calcium 9.2 mg/dL (8.5-10.5); Carbon Dioxide 28 mmol/L (22-29); Chloride 98 mmol/L (98-107); Globulin 4.2 g/dL (1.3-4.6); Glucose 126 mg/dL (65-115); Osmolality Calculated 279 mOsm/kg (285-295); Potassium 4.5 mmol/L (3.5-5.1); Sodium 132 mmol/L (136-145); Total Protein 7.4 g/dL (6.6-8.7)
[2022-06-17 13:32] VITALS: RESP 19
[2022-06-17] MEDS: labetalol 5 mg/mL SDV 20mL 10 MG IVP (13:32)
[2022-06-17 14:30] LABS: Specific Gravity, Urine 1.015 (1.005-1.030); Urine Appearance Clear (CLEAR); Urine Color Straw (Yellow); pH Urine 6 (5-7)
[2022-06-17 14:31] LABS: Bilirubin Urine Neg (Negative); Blood Urine 2+ (Negative); Glucose Urine UA Norm (Normal); Ketones Urine Negative (Negative); Nitrate Urine Negative (Negative); Protein Urine 1+ (Negative)
[2022-06-17 14:32] LABS: Add Urine Culture? No; Add Urine Microscopic? YES; Bacteria Urine TRACE /hpf; Leukocyte Esterase Urine Negative (Negative); RBC Urine 0-4 /hpf (0-2); Urobilinogen Urine Norm (Negative); WBC Urine 0-4 /hpf (0-5)
[2022-06-17 15:07] VITALS: BP 170/90; PULSE 72; O2SAT 96
== END 2022-06-17 15:09 | disposition home or self-care (01) ==
PROVIDERS: Emergency Provider Emergency Medicine; PCP Family Medicine
DX: M54.50 Low back pain, unspecified (principal); T82.39 Other mechanical complication of other vascular grafts; Y83.8 Other surgical procedures as the cause of abnormal reaction of the patient, or of later complication, without mention of misadventure at the time of the procedure; R31.9 Hematuria, unspecified; I71.40 Abdominal aortic aneurysm, without rupture, unspecified; Z79.01 Long term (current) use of anticoagulants
CPT/HCPCS: 74174; 80053; 81001; 85025; 85610; 85730; 93005; 96374; 96375; 96376; 99285; J2270; J3490; Q9967

== ENCOUNTER 2022-07-20 07:33 | Emergency (ER) | payer MEDICARE, BC, SELFPAY ==
[2022-07-20] VITALS (20 sets, daily range): BP systolic 79–138; BP diastolic 54–77; PULSE 73–91; RESP 12–21; TEMP 36.4–36.7; O2SAT 90–99; BMI 23.9
--- NOTE | 2022-07-20 08:13 | CTR_ITS ---
PROCEDURE INFORMATION: Exam: CTA Chest With Contrast CTA Abdomen and Pelvis With Contrast Exam date and time: 07/20/2022 8:29 AM Age: 87 years old Clinical indication: Other: Rectal bleeding; Prior surgery; Surgery date: <1 month; Surgery type: Aaa repair; Additional info: Weakness with recent aortic surgery TECHNIQUE: Imaging protocol: Computed tomographic angiography of the chest with contrast. Computed tomographic angiography of the abdomen and pelvis with contrast. 3D rendering (Not supervised by radiologist): MIP and/or 3D reconstructed images were created by the technologist. Radiation optimization: All CT scans at this facility use at least one of these dose optimization techniques: automated exposure control; mA and/or kV adjustment per patient size (includes targeted exams where dose is matched to clinical indication); or iterative reconstruction. Contrast material: OMNIPAQUE 350; Contrast volume: 125 ml; Contrast route: INTRAVENOUS (IV); COMPARISON: CT angio abdomen pelvis [id number] 06/17/2022 12:06 PM RADIATION DOSE METRICS: Total DLP (mGy-cm): 820.45 FINDINGS: Tubes, catheters and devices: Embolization coils are seen in the lower abdomen and pelvis. VASCULATURE: Pulmonary arteries: Enlargement of the main pulmonary artery to 4.5 cm may suggest pulmonary arterial hypertension. Aorta: Interval placement of an additional stent graft within the suprarenal abdominal aorta. The previously seen active endoleak is no longer appreciated. There are some mixed density blood products within the excluded aneurysm sac. The overall aneurysm sac measures up to 10.0 x 9.9 cm, similar to prior. Celiac trunk and mesenteric arteries: There is a patent stent at the origin of the SMA. The HENRI origin is occluded. Patent celiac origin. Renal arteries: Patent stents within the proximal renal arteries bilaterally. Right iliac arteries: Stents extend into the right common and external iliac arteries and left common iliac artery. Left iliac arteries: No occlusion or significant stenosis. Thyroid: There is a 2.5 cm left thyroid nodule. CHEST: Lungs: Bibasilar atelectasis. Pleural spaces: Large bilateral pleural effusions. No pneumothorax. Heart: Aortic valve replacement. Cardiomegaly. Mitral valve calcifications. ABDOMEN AND PELVIS: Liver: No mass. Gallbladder and bile ducts: Cholelithiasis. Pancreas: Unremarkable. No mass. No ductal dilation. Spleen: Unremarkable. No splenomegaly. Adrenal glands: Unremarkable. No mass. Kidneys and ureters: Left renal cyst. No hydronephrosis. Stomach and bowel: Colonic diverticulosis without evidence of diverticulitis. No bowel obstruction. There is some scattered subtle high-density material in several diverticula in the distal descending and sigmoid colon. Appendix: No evidence of appendicitis. Intraperitoneal space: Small volume free fluid in the pelvis. Urinary bladder: Unremarkable. No mass. Reproductive: Unremarkable as visualized. Lymph nodes: Unremarkable. No enlarged lymph nodes. Bones/joints: Left total hip arthroplasty. Soft tissues: Unremarkable. CT/CT angio abdomen pelvis [id number] IMPRESSION: 1. Interval placement of an additional stent graft within the suprarenal abdominal aorta. The previously seen active endoleak is no longer seen. The overall size of the aneurysm sac appears stable. 2. Colonic diverticulosis with some subtle high-density material in several diverticula, which could reflect ingested material, though a subtle diverticular bleed is not excluded on this single phase exam. 3. Patent stents are seen within the SMA and bilateral renal artery origins. 4. Large bilateral pleural effusions. 5. There is a 2.5 cm left thyroid nodule. Follow-up non-emergent thyroid ultrasound is recommended. COMMENTS: 1. Consistent with the [place] [employer]'s Incidental Findings Committee white paper (J Am Kevin Radiol 2018): Any incidental renal lesion less than 1 cm or classified as too small to characterize, or any incidental cystic renal lesion characterized as simple-appearing, is likely benign. No follow-up imaging is recommended for these lesions per consensus recommendations based on imaging criteria. 2. Consistent with the [place] [employer]'s Incidental Findings Committee white paper (J Am Kevin Radiol 2015): In patients aged 35 years and older with an incidental thyroid nodule equal to or greater than 1.[address], MRI or extrathyroidal US, further evaluation with dedicated thyroid US is recommended for patients with normal life expectancy and without comorbidities. For smaller nodules without suspicious features, no further evaluation or follow up is recommended.
--- NOTE | 2022-07-20 08:14 | ECG_ITS ---
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 Measurements Intervals [place] Rate: 87 P: 88 CO: 205 QRS: 47 QRSD: 165 T: 184 QT: 440 QTc: 532 Interpretive Statements SINUS RHYTHM WITH OCCASIONAL VENTRICULAR PREMATURE COMPLEXES LEFT BUNDLE BRANCH BLOCK [120+ ms QRS DURATION, 80+ ms Q/S IN V1/V2, 85+ ms R IN I/aVL/V5/V6] Compared to ECG 06/17/2022 11:53:06 Ventricular premature complex(es) now present Left bundle-branch block now present First degree AV block no longer present Right-axis deviation no longer present Intraventricular conduction delay no longer present Electronically Signed On 07-20-2022 12:42:56 MC KAY MACHINE OPERATOR by Fazal Aranda M.D. [email or web address]/[id number]
--- NOTE | 2022-07-20 08:17 | XRR_ITS ---
PROCEDURE INFORMATION: Exam: XR Chest Exam date and time: 07/20/2022 9:22 AM Age: 87 years old Clinical indication: Other: Blood in stool; Additional info: Weakness TECHNIQUE: Imaging protocol: Radiologic exam of the chest. Views: 1 view. COMPARISON: CT angio abdomen pelvis [id number] 06/17/2022 12:06 PM FINDINGS: Lungs: Hazy mid and lower lung zone opacities are nonspecific. Pleural spaces: Small to moderate bilateral pleural effusions right greater than left. Negative for pneumothorax. Heart/Mediastinum: Cardiomegaly. Aortic valve replacement. Bones/joints: Median sternotomy. No acute thoracic fracture. XR/XR chest 1V portable [id number] IMPRESSION: Intrathoracic fluid overload changes are present.
[2022-07-20 08:25] LABS: Basophils % 0.1 %; Hematocrit 27.2 % (42.0-52.0); Hemoglobin 7.9 g/dL (11.7-16.6); Lymphocytes # 0.8 10^3/uL (0.8-4.8); Mean Corpuscular Hemoglobin 29.6 pg (28.0-34.0); Mean Corpuscular Volume 101.9 fl (80-94); Mean Platelet Volume 10.2 fL (7.4-10.4); Monocytes # 0.7 10^3/uL (0.2-0.9); Monocytes % 7.2 %; Neutrophils % 83.9 %; Nucleated Red Blood Cells % 0 %; Platelet Count 187 10^3/cmm (130-400); Red Blood Count 2.67 10^6/uL (4.1-5.3); Red Cell Distribution Width 19.2 % (12.1-15.1); White Blood Count 9.5 10^3/uL (4.0-10.0)
[2022-07-20] MEDS: sodium chloride 0.9% 1,000 ML 125 ML IV (08:27)
--- NOTE | 2022-07-20 08:32 | W.ED.GIBLEED ---
Documented by User: Sukhdeep Pickens 07/20/22 11:30 HPI - GI Bleed General: Chief complaint: GI Bleed Stated complaint: GI Time Seen by Provider: 07/20/22 07:43 History of Present Illness: 87-year-old male presents from nursing facility chief complaint generalized weakness apparently his physician sent him in for further evaluation. Patient is status post endograft revision done up in [facility] about 2 to 3 weeks postop. Patient reports no abdominal pain no back pain reports generalized malaise and fatigue apparently he is also been having some melanotic stools. The patient is on Coumadin which per his family reports has had increased bruising. Patient presents to the ER for further assessment and management. Associated symptoms: Denies abdominal pain, chills, fever(s), headache(s), nausea, rash or vomiting Review of Systems General: Reports: 10 or more systems reviewed and unremarkable except in HPI and below Narrative: Generalized weakness and fatigue reports no other associated symptoms per facility melanotic stools Const: Denies: fever(s) or chills Eyes: Denies: change in vision or blurry vision Card: Denies: chest pain or palpitations Resp: Denies: dyspnea or productive cough GI: Denies: abdominal pain, nausea or vomiting : Denies: flank pain Musc: Denies: extremity pain or extremity swelling Skin/Breast: Denies: rash or pruritus Neuro: Denies: headache(s) Psych: Denies: anxiety or depression Per/Lymph: Denies: easy bleeding All/Imm: Denies: urticaria, throat swelling or facial swelling PFSH ED PFSH: Medical History Aortic stenosis Atrial fibrillation CAD (coronary artery disease) Hypercholesterolemia Hypertension 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 Labile blood pressure Right ventricular dilation Surgical History History of knee joint replacement Hx of CABG S/P AAA (abdominal aortic aneurysm) repair S/P aortic valve replacement S/P appendectomy S/P cataract surgery S/P hip replacement S/P tonsillectomy Family History Sister Cancer Brain CA Father Heart disease Brother Heart disease Social History Household members: spouse Marital status: Current occupational status: retired Physical Exam Narrative: EXAM NARRATIVE: Patient has generalized fatigue and weakness on exam does not appear in any obvious acute distress no focal neurodeficits appreciated GCS of 15 NIH of 0 Const: COMMON NORMALS: no acute distress, patient oriented x3 and healthy appearing HENMT: COMMON NORMALS: normocephalic and atraumatic HEAD & SCALP: normocephalic and atraumatic Eye: COMMON NORMALS: Equal, round and reactive pupils present and EOMs intact bilaterally PUPIL: Yes Equal, round and reactive pupils present Neck/C-Spine: COMMON NORMALS: full ROM, supple and no JVD Lymph: LYMPHATIC: no lymphadenopathy noted Chest: COMMONS NORMALS: normal inspection of the chest and normal palpation of entire chest wall Resp: COMMON NORMALS: normal respiratory effort, No retractions and clear to auscultation bilaterally EFFORT & INSPECTION: Yes able to speak in complete sentences and Yes symmetric chest movement AUSCULTATION: clear to auscultation bilaterally Cardio: COMMON NORMALS: no JVD, regular rate and regular rhythm RATE: regular rate RHYTHM: regular rhythm GI: COMMON NORMALS: Normal to inspection, nondistended, normoactive bowel sounds present, Soft to palpation and non-tender INSPECTION: Yes normal to inspection PALPATION: Yes Soft to palpation : COMMON NORMALS: Yes no CVA tenderness BLADDER/KIDNEY EXAM: Yes no CVA tenderness Back/Pelvis: COMMON NORMALS: no CVA tenderness Extremity: COMMON NORMALS: normal to inspection and full ROM Neuro: COMMON NORMALS: patient oriented x3, CN's II-XII intact bilaterally, moves all extremities and no focal motor deficits Psych: COMMON NORMALS: mental status grossly normal, Normal thought process present, cooperative and normal affect THOUGHT PROCESS: Normal thought process present Skin: COMMON NORMALS: no rashes or lesions noted GENERAL SKIN EXAM: no rashes or lesions noted Course Vital Signs: Vital signs: Vital Signs Temperature 97.8 F 07/20/22 15:52 Pulse Rate 79 07/20/22 15:57 Respiratory Rate 19 H 07/20/22 15:57 Blood Pressure 95/54 07/20/22 15:57 Pulse Oximetry 96 07/20/22 15:57 Oxygen Delivery Me thod 07/20/22 10:00 Oxygen Flow Rate 2 07/20/22 10:00 MDM - GI Bleed Medical Decision Making Due to the patient's symptoms and condition lab work and imaging will be obtained IV fluids provided for hydration type and screen will be obtained and the patient INR obtained we will be obtaining a CTA of the abdomen pelvis to reassess the patient's leaking endograft that was fixed recently we will continue to follow Patient appears to be a combination of heart failure as well as acute anemia hemoglobin 7.9 most recent hemoglobin was greater than 11 last time he was here a month ago unclear whether or not what his hemoglobin was when he was at [facility] after his repair will be typing and crossing tenets of packed red blood cells to help the patient anticipate need for admission or transfer based upon the remainder of his imaging and lab work. Lab Data 07/20/22 07:18 07/20/22 07:18 Radiology Impressions Abdomen/Pelvis CTA 07/20/22 08:13 IMPRESSION: 1. Interval placement of an additional stent graft within the suprarenal abdominal aorta. The previously seen active endoleak is no longer seen. The overall size of the aneurysm sac appears stable. 2. Colonic diverticulosis with some subtle high-density material in several diverticula, which could reflect ingested material, though a subtle diverticular bleed is not excluded on this single phase exam. 3. Patent stents are seen within the SMA and bilateral renal artery origins. 4. Large bilateral pleural effusions. 5. There is a 2.5 cm left thyroid nodule. Follow-up non-emergent thyroid ultrasound is recommended. COMMENTS: 1. Consistent with the [place] [employer]'s Incidental Findings Committee white paper (J Am Kevin Radiol 2018): Any incidental renal lesion less than 1 cm or classified as too small to characterize, or any incidental cystic renal lesion characterized as simple-appearing, is likely benign. No follow-up imaging is recommended for these lesions per consensus recommendations based on imaging criteria. 2. Consistent with the [place] [employer]'s Incidental Findings Committee white paper (J Am Kevin Radiol 2015): In patients aged 35 years and older with an incidental thyroid nodule equal to or greater than 1.[address], MRI or extrathyroidal US, further evaluation with dedicated thyroid US is recommended for patients with normal life expectancy and without comorbidities. For smaller nodules without suspicious features, no further evaluation or follow up is recommended. Chest X-Ray 07/20/22 08:17 IMPRESSION: Intrathoracic fluid overload changes are present. Laboratory Results WBC 9.5 10^3/uL (4.0-10.0) 07/20/22 07:18 RBC 2.67 10^6/uL (4.1-5.3) L 07/20/22 07:18 Hgb 7.9 g/dL (11.7-16.6) L 07/20/22 07:18 Hct 27.2 % (42.0-52.0) L 07/20/22 07:18 MCV 101.9 fl (80-94) H 07/20/22 07:18 MCH 29.6 pg (28.0-34.0) 07/20/22 07:18 MCHC 29.0 g/dL (30.0-36.0) L 07/20/22 07:18 RDW 19.2 % (12.1-15.1) H 07/20/22 07:18 Plt Count 187 10^3/cmm (130-400) 07/20/22 07:18 MPV 10.2 fL (7.4-10.4) 07/20/22 07:18 Neut % (Auto) 83.9 % 07/20/22 07:18 Lymph % (Auto) 8.0 % 07/20/22 07:18 [place] % (Auto) 7.2 % 07/20/22 07:18 Eos % (Auto) 0.0 % 07/20/22 07:18 Baso % (Auto) 0.1 % 07/20/22 07:18 Neut # (Auto) 8.00 10^3/uL (1.8-7.7) H 07/20/22 07:18 Lymph # (Auto) 0.8 10^3/uL (0.8-4.8) 07/20/22 07:18 [place] # (Auto) 0.7 10^3/uL (0.2-0.9) 07/20/22 07:18 Eos # (Auto) 0.0 10^3/uL (0.0-0.8) 07/20/22 07:18 Baso # (Auto) 0.0 10^3/uL (0.0-0.1) 07/20/22 07:18 Nucleated RBC % (auto) 0 % 07/20/22 07:18 Nucleated RBCs # 0.0 /100WBC 07/20/22 07:18 PT 52.50 SECONDS (12.1-14.9) H 07/20/22 10:53 INR 5.85 (0.8-1.2) H* 07/20/22 10:53 APTT 47.7 SECONDS (23.9-36.7) H 07/20/22 07:18 Sodium 146 mmol/L (136-145) H 07/20/22 07:18 Potassium 3.8 mmol/L (3.5-5.1) 07/20/22 07:18 Chloride 103 mmol/L (98-107) 07/20/22 07:18 Carbon Dioxide 36 mmol/L (22-29) H 07/20/22 07:18 Anion Gap 10.8 (5-19) 07/20/22 07:18 BUN 53 mg/dL (8-23) H 07/20/22 07:18 Creatinine 1.0 mg/dL (0.7-1.2) 07/20/22 07:18 GFR Calculation Not Reportable 07/20/22 07:18 Glucose 124 mg/dL (65-115) H 07/20/22 07:18 Calculated Osmolality 318 mOsm/kg (285-295) H 07/20/22 07:18 Calcium 8.2 mg/dL (8.5-10.5) L 07/20/22 07:18 Total Bilirubin 0.5 mg/dL (0.15-1.2) 07/20/22 07:18 AST 26 U/L (0-40) 07/20/22 07:18 ALT 31 U/L (0-41) 07/20/22 07:18 Alkaline Phosphatase 60 U/L (40-130) 07/20/22 07:18 Troponin T Baseline 122 ng/L (0-15) H* 07/20/22 07:18 Troponin T 120 Minute 107.7 ng/L (0-15) H 07/20/22 09:18 Delta Troponin T -14.3 ABS# (0-10) L 07/20/22 09:18 C-Reactive Protein 8.3 mg/L (0.0-4.9) H 07/20/22 07:18 NT-Pro-B Natriuret Pep 7688 pg/mL (0-450) H 07/20/22 07:18 Total Protein 5.5 g/dL (6.6-8.7) L 07/20/22 07:18 Albumin 2.5 g/dL (3.5-5.2) L 07/20/22 07:18 Globulin 3.0 g/dL (1.3-4.6) 07/20/22 07:18 Urine Color Yellow (Yellow) 07/20/22 Unknown Urine Appearance Hazy (CLEAR) A 07/20/22 Unknown Urine pH 5 (5-7) 07/20/22 Unknown Ur Specific [place] 1.010 (1.005-1.030) 07/20/22 Unknown Urine Protein Neg (Negative) 07/20/22 Unknown Urine Glucose (UA) Norm (Normal) 07/20/22 Unknown Urine Ketones Negative (Negative) 07/20/22 Unknown Urine Blood 2+ (Negative) H 07/20/22 Unknown Urine Nitrate Negative (Negative) 07/20/22 Unknown Urine Bilirubin Neg (Negative) 07/20/22 Unknown Urine Urobilinogen Neg mg/dL (Negative) 07/20/22 Unknown Ur Leukocyte Esterase Negative (Negative) 07/20/22 Unknown Urine RBC Rare /hpf (0-2) 07/20/22 Unknown Urine WBC Rare /hpf (0-5) 07/20/22 Unknown Ur Squamous Epith Cells 5-10 /hpf (0-5) H 07/20/22 Unknown Amorphous Sediment Not Reportable 07/20/22 Unknown Urine Bacteria Trace /hpf (NONE) 07/20/22 Unknown Hyaline Casts 0-4 /lpf H 07/20/22 Unknown Coarse Granular Casts 0-4 /lpf H 07/20/22 Unknown Urine Mucus 1+ /hpf 07/20/22 Unknown Coronavirus 229E (PCR) Not detected (NOT DETECT) 07/20/22 12:13 SARS-CoV-2 (PCR) Not detected (NOT DETECT) 07/20/22 12:13 Blood Type A Positive 07/20/22 08:50 Rho(D) Type Positive 07/20/22 08:50 Antibody Screen Negative 07/20/22 08:50 Crossmatch See Detail 07/20/22 08:50 Discharge Plan Discharge Patient Disposition: Xfer Short-Term Hosp Clinical Impression: GI bleed, Atrial fibrillation, S/P AAA (abdominal aortic aneurysm) repair, Coumadin toxicity, Aortic stenosis, Congestive heart failure, Diverticulitis Condition: Stable Prescriptions: No Action (DME) Sole Supports See Rx Instructions .ROUTE .MEDSUPPLY Qty: 1 0RF Rx Instructions: As directed atorvastatin 80 mg tablet 80 mg PO BEDTIME finasteride 5 mg tablet 5 mg PO BEDTIME acetaminophen [Tylenol Extra Strength] 500 mg tablet 1,000 mg PO Q6H PRN (Reason: Pain) warfarin 5 mg tablet 5 mg PO DAILY@18 Rx Instructions: on hold since 07/17/22 (DME) COCK UP SPLINT See Rx Instructions .Route .MEDSUPPLY Qty: 2 0RF Rx Instructions: As directed (DME) Sole Supports See Rx Instructions .Route .MEDSUPPLY Qty: 1 0RF Rx Instructions: As directed senna 8.6 mg Tablet 8.6 mg PO BID PRN (Reason: Constipation) Aspir-81 81 mg Tablet,Delayed Release (Dr/Ec) 81 mg PO QAM Milk of Magnesia 400 mg/5 mL Suspension 30 ml PO DAILY PRN (Reason: Constipation) Dulcolax (bisacodyl) 10 mg Suppository 10 mg ND DAILY PRN (Reason: Constipation) furosemide 20 mg Tablet 40 mg PO QAM ramelteon 8 mg Tablet 8 mg PO BEDTIME Miralax 17 gram powder in packet 17 g PO DAILY PRN (Reason: Constipation) Referrals: Autumn Maza MD [Primary Care Provider] - Coding Level of Care Code ED Elevator Dispatcher for Chg Fwd Exam Comprehensive Documented by User: Gerson Louis DO 07/20/22 17:09 HPI - GI Bleed General: Chief complaint: GI Bleed Stated complaint: GI Time Seen by Provider: 07/20/22 07:43 PFSH ED PFSH: Medical History Aortic stenosis Atrial fibrillation CAD (coronary artery disease) Hypercholesterolemia Hypertension 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 Labile blood pressure Right ventricular dilation Surgical History History of knee joint replacement Hx of CABG S/P AAA (abdominal aortic aneurysm) repair S/P aortic valve replacement S/P appendectomy S/P cataract surgery S/P hip replacement S/P tonsillectomy Family History Sister Cancer Brain CA Father Heart disease Brother Heart disease Social History Household members: spouse Marital status: Current occupational status: retired Course Vital Signs: Vital signs: Vital Signs Temperature 97.8 F 07/20/22 15:52 Pulse Rate 79 07/20/22 15:57 Respiratory Rate 19 H 07/20/22 15:57 Blood Pressure 95/54 07/20/22 15:57 Pulse Oximetry 96 07/20/22 15:57 Oxygen Delivery Me thod 07/20/22 10:00 Oxygen Flow Rate 2 07/20/22 10:00 MDM - GI Bleed Medical Decision Making Due to the patient's symptoms and condition lab work and imaging will be obtained IV fluids provided for hydration type and screen will be obtained and the patient INR obtained we will be obtaining a CTA of the abdomen pelvis to reassess the patient's leaking endograft that was fixed recently we will continue to follow Patient appears to be a combination of heart failure as well as acute anemia hemoglobin 7.9 most recent hemoglobin was greater than 11 last time he was here a month ago unclear whether or not what his hemoglobin was when he was at [facility] after his repair will be typing and crossing tenets of packed red blood cells to help the patient anticipate need for admission or transfer based upon the remainder of his imaging and lab work. 07/20/2022 1707 p.m. Patient care assumed at change of shift. His ordered 2 units of fresh frozen plasma as well as TXA. Also continue to transfuse blood. Repeat hemoglobin trending. We called and talked with George he is on the wait list but it may be several days to talk to Dr. Ray and Dr. Ureña about putting on ops here until the bed became available at [place] Dr. Mary like to try to transfer somewhere else [facility] was willing to take a transfer via ambulance discussed with hospitalist there Dr. Rojas Lab Data 07/20/22 07:18 07/20/22 07:18 Radiology Impressions Abdomen/Pelvis CTA 07/20/22 08:13 IMPRESSION: 1. Interval placement of an additional stent graft within the suprarenal abdominal aorta. The previously seen active endoleak is no longer seen. The overall size of the aneurysm sac appears stable. 2. Colonic diverticulosis with some subtle high-density material in several diverticula, which could reflect ingested material, though a subtle diverticular bleed is not excluded on this single phase exam. 3. Patent stents are seen within the SMA and bilateral renal artery origins. 4. Large bilateral pleural effusions. 5. There is a 2.5 cm left thyroid nodule. Follow-up non-emergent thyroid ultrasound is recommended. COMMENTS: 1. Consistent with the [place] [employer]'s Incidental Findings Committee white paper (J Am Kevin Radiol 2018): Any incidental renal lesion less than 1 cm or classified as too small to characterize, or any incidental cystic renal lesion characterized as simple-appearing, is likely benign. No follow-up imaging is recommended for these lesions per consensus recommendations based on imaging criteria. 2. Consistent with the [place] [employer]'s Incidental Findings Committee white paper (J Am Kevin Radiol 2015): In patients aged 35 years and older with an incidental thyroid nodule equal to or greater than 1.[address], MRI or extrathyroidal US, further evaluation with dedicated thyroid US is recommended for patients with normal life expectancy and without comorbidities. For smaller nodules without suspicious features, no further evaluation or follow up is recommended. Chest X-Ray 07/20/22 08:17
[2022-07-20 08:44] LABS: Partial Thromboplastin Time 47.7 SECONDS (23.9-36.7)
[2022-07-20 09:05] LABS: Alanine Aminotransferase 31 U/L (0-41); Albumin Level 2.5 g/dL (3.5-5.2); Alkaline Phosphatase 60 U/L (40-130); Anion Gap 10.8 (5-19); Aspartate Amino Transferase 26 U/L (0-40); Blood Urea Nitrogen 53 mg/dL (8-23); C Reactive Protein 8.3 mg/L (0.0-4.9); Calcium 8.2 mg/dL (8.5-10.5); Carbon Dioxide 36 mmol/L (22-29); Chloride 103 mmol/L (98-107); Glucose 124 mg/dL (65-115); NT Pro B Type Natriuretic Pept 7688 pg/mL (0-450); Osmolality Calculated 318 mOsm/kg (285-295); Potassium 3.8 mmol/L (3.5-5.1); Sodium 146 mmol/L (136-145); Total Bilirubin 0.5 mg/dL (0.15-1.2); Total Protein 5.5 g/dL (6.6-8.7)
[2022-07-20 09:15] LABS: Troponin(5th) Baseline 122 ng/L (0-15)
[2022-07-20] MEDS: iohexol 350 mg/mL 500 mL Btl (per mL) IV (09:23)
[2022-07-20 09:38] LABS: INR 5.43 (0.8-1.2)
--- NOTE | 2022-07-20 09:38 | PC.PHAR ---
PT IS FROM [facility] [phone]-[id number] NURSE FROM [facility] THE PT HAD NO MEDICATIONS TODAY-STATES THE PTS WARFARIN 5MG DAILY HAS BEEN ON HOLD SINCE 07/17/22-[facility] THE PTS TYLENOL 1000MG Q6H WAS DCED 07/11/22-MIRALAX 17G DAILY DCED ON 07/11/22-[facility] PT WAS GIVEN A ONE TIME DOSE OF KCL 20MEQ ON 07/13/22-SENNA 8.6MG BID DCED 07/17/22-[facility] MEDICATIONS ENTERED ARE THE ONLY MEDICATIONS THE PT IS TAKING
--- NOTE | 2022-07-20 10:38 | PC.NURSE ---
HEMOCCULT STOOL TEST POSITIVE
[2022-07-20 10:44] LABS: Troponin 5 2HR Delta -14.3 ABS# (0-10)
[2022-07-20 10:44] LABS: Add Urine Microscopic? YES; Bilirubin Urine Neg (Negative); Blood Urine 2+ (Negative); Glucose Urine UA Norm (Normal); Ketones Urine Negative (Negative); Leukocyte Esterase Urine Negative (Negative); Nitrate Urine Negative (Negative); Protein Urine Neg (Negative); Urine Appearance Hazy (CLEAR); Urine Color Yellow (Yellow); Urobilinogen Urine Neg (Negative); pH Urine 5 (5-7)
[2022-07-20 10:45] LABS: Bacteria Urine TRACE /hpf; Coarse Granular Casts Urine 0-4 /lpf; Hyaline Casts Urine 0-4 /lpf; Mucus Urine 1+ /hpf; RBC Urine RARE /hpf (0-2); WBC Urine RARE /hpf (0-5)
[2022-07-20 10:45] LABS: Troponin 5 2HR 107.7 ng/L (0-15)
[2022-07-20 10:46] LABS: Add Urine Culture? No
--- NOTE | 2022-07-20 10:52 | ECG_ITS ---
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 Measurements Intervals [place] Rate: 86 P: 81 NV: 170 QRS: 78 QRSD: 157 T: 206 QT: 428 QTc: 513 Interpretive Statements SINUS RHYTHM INTRAVENTRICULAR CONDUCTION DELAY [130+ ms QRS DURATION] Compared to ECG 07/20/2022 08:36:25 Intraventricular conduction delay now present Ventricular premature complex(es) no longer present Left bundle-branch block no longer present Electronically Signed On 07-20-2022 12:50:46 MYCOLOGY TEACHER by Fazal Aranda M.D. [id number]
[2022-07-20] MEDS: sodium chloride 0.9% 100 mL Bag 50 ML IV (11:08)
[2022-07-20 11:30] LABS: INR 5.85 (0.8-1.2)
[2022-07-20] MEDS: phytonadione (ADULT) 10 mg/mL Ampule 1 mL SUBCUT (12:04)
[2022-07-20 14:13] LABS: Adenovirus Not Detected (NOT DETECT); Chlamydia Pneumoniae Not Detected (NOT DETECT); Coronavirus 229E,HKU1,NL63,OC4 Not Detected (NOT DETECT); Human Metapneumovirus Not Detected (NOT DETECT); Human Rhinovirus/Enterovirus Not Detected (NOT DETECT); Influenza A Not Detected (NOT DETECT); Influenza A H1 Not Detected (NOT DETECT); Influenza A H1-2009 Not Detected (NOT DETECT); Influenza A H3 Not Detected (NOT DETECT); Influenza B Not Detected (NOT DETECT); Mycoplasma Pneumoniae Not Detected (NOT DETECT); Parainfluenza Virus Type 1 Not Detected (NOT DETECT); Parainfluenza Virus Type 2 Not Detected (NOT DETECT); Parainfluenza Virus Type 3 Not Detected (NOT DETECT); Parainfluenza Virus Type 4 Not Detected (NOT DETECT); Respiratory Syncytial Virus A Not Detected (NOT DETECT); Respiratory Syncytial Virus B Not Detected (NOT DETECT); SARS-COV-2 Not Detected (NOT DETECT)
--- NOTE | 2022-07-20 14:21 | P.HP_ITS ---
Providers/Chief Complaint Primary Care Provider: Autumn Maza MD Chief Complaint: GI History of Present Illness Ruben Huff is a 87 year old male with a past medical history of aortic stenosis status post aortic valve replacement with prosthetic valve, atrial fibrillation on Coumadin, CAD, hyperlipidemia, hypertension, LVH, history of abdominal aortic aneurysm repair with endoleak status post repair, history of CABG, who presents to [facility] due to weakness, fatigue. Patient 3 weeks ago was transferred from [facility] for persistent endoleak, his tells me that they created a special graft just for him, he spent roughly 2 weeks and hospital 1 week ICU was never intubated, no significant complications but did well after surgery, he was then transferred to [facility]. She tells me he is never right after surgery he was fatigued, tired, he has been participating in physical therapy last few. According to last few retirement specifically the physical therapy department transferred patient to the ER because he was not right, he was just fatigued. According to patient, he has been feeling well, has been fatigued, tired, increasingly short of breath. Denies any fevers, no chills, no cough, no recent sickness. I spoke to [facility], they tell me that patient has been experiencing elevated INR's as high as 7.2, he been weak, fatigued, very early this morning he started to develop black tarry liquidy stools, that were heme positive, which persisted thr oughout the day he also had a low blood pressure in the 80s over 40s, so they sent him to [facility] for further evaluation. In the emergency room patient has had several large liquidy black bowel movements. He is blood pressures have been soft, lactic acid pending, INR 5.85, BUN 53, creatinine 1, hemoglobin 7.9, he is receiving units FFP, 2 units of blood, has received tranexamic acid,, received fluids, he is alert oriented x3, following all commands. Denies any abdominal pain, no nausea, vomiting. Continues to have black tarry stools. Review of Systems Const: Denies: fever(s) Card: Denies: chest pain Resp: Denies: dyspnea GI: Reports: abdominal pain Medications/Allergies Home Medications Medication Instructions Recorded Confirmed Last Taken Type Sole Supports #1 ea 01/15/20 07/20/22 Unknown Rx acetaminophen 500 mg tablet 1,000 mg PO Q6H PRN Pain 02/04/20 07/20/22 03/16/21 History (Tylenol Extra Strength) atorvastatin 80 mg tablet 80 mg PO BEDTIME 02/04/20 07/20/22 07/19/22 History finasteride 5 mg tablet 5 mg PO BEDTIME 02/04/20 07/20/22 07/19/22 History warfarin 5 mg tablet 5 mg PO DAILY@18 02/04/20 07/20/22 06/04/22 History COCK UP SPLINT #2 ea 03/09/21 07/20/22 Unknown Rx Sole Supports #1 ea 02/22/22 07/20/22 Unknown Rx aspirin 81 mg tablet,delayed 81 mg PO QAM 07/20/22 07/20/22 07/19/22 History release bisacodyl 10 mg rectal suppository 10 mg MS DAILY PRN Constipation 07/20/22 07/20/22 Unknown History (Dulcolax (bisacodyl)) furosemide 20 mg tablet 40 mg PO QAM 07/20/22 07/20/22 07/19/22 History magnesium hydroxide 400 mg/5 mL 30 ml PO DAILY PRN Constipation 07/20/22 07/20/22 Unknown History oral suspension (Milk of Magnesia) polyethylene glycol 3350 17 gram 17 g PO DAILY PRN Constipation 07/20/22 07/20/22 Unknown History oral powder packet (Miralax) ramelteon 8 mg tablet 8 mg PO BEDTIME 07/20/22 07/20/22 07/19/22 History sennosides 8.6 mg tablet (senna) 8.6 mg PO BID PRN Constipation 07/20/22 07/20/22 Unknown History Allergies Allergy/AdvReac Type Severity Reaction Status Date / Time No Known Allergies Allergy Verified 07/20/22 09:18 PFSH Acute PFSH: Medical History Aortic stenosis Atrial fibrillation CAD (coronary artery disease) Hypercholesterolemia Hypertension 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 Labile blood pressure Right ventricular dilation Surgical History History of knee joint replacement Hx of CABG S/P AAA (abdominal aortic aneurysm) repair S/P aortic valve replacement S/P appendectomy S/P cataract surgery S/P hip replacement S/P tonsillectomy Family History Sister Cancer Brain CA Father Heart disease Brother Heart disease Social History Household members: spouse Marital status: Current occupational status: retired Vitals/I&O/Wt Last Vital Signs Temp 97.6 F 07/20/22 13:45 Pulse 90 07/20/22 13:45 Resp 17 07/20/22 13:45 BP 105/62 07/20/22 13:45 Pulse Ox 93 07/20/22 13:45 O2 Del Method 07/20/22 10:00 O2 Flow Rate 2 07/20/22 10:00 07/19/22 07/20/22 07/20/22 22:59 06:59 14:59 Intake Total 350 / 350 Balance 350 / 350 Weight last 48 hrs Weight 75.75 kg Physical Exam Const: COMMON NORMALS: no acute distress and patient oriented x3 HENMT: COMMON NORMALS: normocephalic HEAD & SCALP: normocephalic Resp: COMMON NORMALS: normal respiratory effort, No retractions, No use of acc essory muscles and clear to auscultation bilaterally AUSCULTATION: clear to auscultation bilaterally Cardio: COMMON NORMALS: regular rate, regular rhythm, S1 normal heart sound present and S2 normal heart sound present RATE: regular rate RHYTHM: regular rhythm HEART SOUNDS: S1 normal heart sound present and S2 normal heart sound present GI: COMMON NORMALS: Normal to inspection, nondistended, normoactive bowel sounds present, Soft to palpation and non-tender Extremity: COMMON NORMALS: no pedal edema Neuro: COMMON NORMALS: patient oriented x3, CN's II-XII intact bilaterally and moves all extremities Psych: COMMON NORMALS: mental status grossly normal Data 07/20/22 07:18 07/20/22 07:18 A&P Assessment and plan (1) GI bleed: (2) Coumadin toxicity: (3) Aortic stenosis: Qualifiers: Cardiac valve disease etiology: nonrheumatic Qualified Code(s): I35.0 - Nonrheumatic aortic (valve) stenosis (4) S/P AAA (abdominal aortic aneurysm) repair: (5) Atrial fibrillation: Plan Upper GI bleed -Supratherapeutic INR, Coumadin toxicity -According to ICU retirement Coumadin has been held since the -INR is high at 7.2 -Has been having black tarry stools for at least 12 hours -With hemodynamic compromise -Currently blood pressures are soft, but maps greater than 65 alert oriented x3, following all commands -In the emergency room continues to have black starry stools -Hemoglobin 7.9, INR 5.84 -CT scan abdomen pelvis showed -1. Interval placement of an additional stent graft within the suprarenal abdominal aorta. The previously seen active endoleak is no longer seen. The overall size of the aneurysm sac appears stable. 2. Colonic diverticulosis with some subtle high-density material in several diverticula, which could reflect ingested material, though a subtle diverticular bleed is not excluded on this single phase exam. 3. Patent stents are seen within the SMA and bilateral renal artery origins. 4. Large bilateral pleural effusions. 5. There is a 2.5 cm left thyroid nodule. Follow-up non-emergent thyroid ultrasound is recommended. Plan -I would highly recommend patient to be transferred to tertiary level center, as we do not have IR support -He was placed on the wait list at [place], he is a potential transfer to [facility], -Status post 2 units PRBC -2 units FFP -1 dose vitamin K -Transamexci acid -As he continues to have black tarry stools, soft blood pressures, he is experiencing a life-threatening bleed, I would recommend [facility] -Update patient has been accepted at [facility], Rodrigo recommended against [facility] for now, will hold -While awaiting transfer would recommend continue fluid hydration, recheck labs, recheck INR, recheck hemoglobin -Full code -SCDs for DVT prophylaxis Attestations Medical Necessity Statement*: Patient requires hospitalization, inpatient, greater than 2 midnights, for GI bleed, Coumadin toxicity, is being transferred to [facility] Coding Level of Care Code Acute Biometrics Technician for Chg Fwd Diagnoses GI bleed K92.2 Coumadin toxicity T45.511A Aortic stenosis I35.0 Cardiac valve disease etiology: nonrheumatic S/P AAA (abdominal aortic aneurysm) repair Z98.890; Z86.79 Atrial fibrillation I48.91
--- NOTE | 2022-07-20 14:42 | ECG_ITS ---
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 Measurements Intervals [place] Rate: 82 P: 85 MI: 246 QRS: 73 QRSD: 164 T: 212 QT: 445 QTc: 522 Interpretive Statements SINUS RHYTHM WITH FIRST DEGREE AV BLOCK WITH OCCASIONAL VENTRICULAR PREMATURE COMPLEXES LEFT BUNDLE BRANCH BLOCK [120+ ms QRS DURATION, 80+ ms Q/S IN V1/V2, 85+ ms R IN I/aVL/V5/V6] Compared to ECG 07/20/2022 10:52:40 Ventricular premature complex(es) now present First degree AV block now present Left bundle-branch block now present Intraventricular conduction delay no longer present Electronically Signed On 07-21-2022 11:12:05 YARN DUMPER by Aydin Batista M.D. [id number]
[2022-07-20] MEDS: pantoprazole 40 mg SDV 80 MG IVP (16:58)
[2022-07-20 17:07] LABS: Basophils % 0.1 %; Hematocrit 26.1 % (42.0-52.0); Hemoglobin 8.2 g/dL (11.7-16.6); Lymphocytes # 0.3 10^3/uL (0.8-4.8); Lymphocytes % 2.6 %; Mean Corpuscular HGB Conc 31.4 g/dL (30.0-36.0); Mean Corpuscular Hemoglobin 29.6 pg (28.0-34.0); Mean Corpuscular Volume 94.2 fl (80-94); Mean Platelet Volume 10.1 fL (7.4-10.4); Monocytes # 0.7 10^3/uL (0.2-0.9); Monocytes % 5.5 %; Neutrophils # 11.07 10^3/uL (1.8-7.7); Neutrophils % 91.2 %; Nucleated Red Blood Cells % 0 %; Platelet Count 120 10^3/cmm (130-400); Red Blood Count 2.77 10^6/uL (4.1-5.3); Red Cell Distribution Width 20.3 % (12.1-15.1); White Blood Count 12.1 10^3/uL (4.0-10.0)
--- NOTE | 2022-07-20 17:18 | PC.NURSE ---
2ND UNIT OF FFP STARTED AND SENT WITH EMS CREW.
[2022-07-20 17:21] LABS: INR 2.59 (0.8-1.2)
[2022-07-20 17:30] LABS: Anion Gap 11.6 (5-19); Carbon Dioxide 33 mmol/L (22-29); Chloride 104 mmol/L (98-107); Glucose 118 mg/dL (65-115); Potassium 3.6 mmol/L (3.5-5.1); Sodium 145 mmol/L (136-145)
[2022-07-20 17:45] LABS: Calcium 7.9 mg/dL (8.5-10.5); Ferritin 115 ng/mL (30-400); Iron 171 ug/dL (59-158); Total Iron Binding Capacity 192 mcg/dl; Unsaturated Iron Binding 21 ug/dL (112-347)
[2022-07-20 18:09] LABS: Blood Urea Nitrogen 54 mg/dL (8-23); Osmolality Calculated 316 mOsm/kg (285-295)
== END 2022-07-20 17:20 | disposition short-term general hospital (02) ==
PROVIDERS: Emergency Medicine; Family Medicine; Emergency Provider Family Medicine; PCP Family Medicine
DX: K92.2 Gastrointestinal hemorrhage, unspecified (principal); Z98.890 Other specified postprocedural states; I35.0 Nonrheumatic aortic (valve) stenosis; I11.0 Hypertensive heart disease with heart failure; I50.9 Heart failure, unspecified; K57.92 Diverticulitis of intestine, part unspecified, without perforation or abscess without bleeding; T45.515A Adverse effect of anticoagulants, initial encounter; I48.91 Unspecified atrial fibrillation; Z79.82 Long term (current) use of aspirin; Z79.01 Long term (current) use of anticoagulants; Z20.822 Contact with and (suspected) exposure to COVID-19; I25.10 Atherosclerotic heart disease of native coronary artery without angina pectoris; Z95.1 Presence of aortocoronary bypass graft
CPT/HCPCS: 36415; 36430; 71045; 74174; 80048; 80053; 81001; 82728; 83540; 83550; 83880; 84484; 85025; 85610; 85730; 86140; 86850; 86900; 86920; 87635; 93005; 96365; 96366; 96372; 96375; 99291; C9113; J3430; J7030; P9016; P9017; Q9967